=== PATIENT | female | born 1945 | race Caucasian/White ===

== ENCOUNTER 2019-03-18 14:25 | Outpatient (RCR) | payer MEDICARE, SELFPAY ==
--- NOTE | 2019-03-24 10:46 | ONC FU_ITS ---
[facility] Patient Note Patient: Yanira Sagastume Unit #: [id number]: 1945 Dictated By: Ricardo AngelDate of Visit: Mar 18, 2019 Onc MED Follow-Up/Prog Note Chief Complaint: Breast cancer. History of Present Illness: Mrs Sagastume is a 73 year-old woman with grade 3 infiltrating ductal carcinoma of the right breast, ER/WA positive and HER-2/lara negative. She had presented with a lump in her left breast. Diagnostic mammogram/ultrasound on 04/08/2018 showed a high density spiculated soft tissue mass in the posterior third central aspect of the left breast, slightly lateral to the nipple, measuring 2.3 x 3 cm. An additional nodule with indistinct margins measuring 1 cm was noted directly anterior to the mass. Additional clusters of punctate calcifications were noted in the upper outer quadrant anteriorly and posteriorly. The right breast showed numerous punctate pleomorphic calcifications with branching extensions at the 12:00 position. An additional mass measuring 8.7 mm with associated punctate pleomorphic calcifications was noted in the upper outer quadrant of the right breast. Ultrasound of the left breast showed a mass lesion with irregular margins measuring 2.5 x 3.1 x 3.1 cm in the 4:00 position. The right breast showed hypoechoic nodules at the 10-11:00 position and the 11:00 position, felt to be distinct from the architectural distortion at the 12:00 position. She underwent ultrasound directed needle biopsy on 04/17/2018. Pathology showed grade 3 infiltrating ductal carcinoma. The breast prognostic profile showed the Ki-67 unfavorable at 33%. ER was positive at 95% and WA was positive at 56%. The tumor was negative for overexpression of HER-2/lara, 0+ by IHC and amplification ratio by FISH of 1.1 with 2.9 HER-2 copies/cell. Dr Miller had seen her initially on 05/01/2018. Dr Miller reviewed treatment potential options for further treatment. At that point the decision was made to proceed with left breast lumpectomy with axillary sentinel lymph node biopsy and biopsies of the right breast lesions. That procedure was done on 05/22/2018. Pathology on the lumpectomy showed grade 2 infiltrating ductal carcinoma measuring 2.9 x 2.2 cm. The margins were free. There was no involvement in 3 axillary sentinel lymph nodes. Pathologic staging was T2, N0. Excisional biopsy of the right breast lesion at 10:00 showed grade 1 infiltrating ductal carcinoma measuring 1.1 cm. There was a component of DCIS, nuclear grade 2. There was infiltrating tumor in the margin and DCIS was identified at inked margins. Excisional biopsy of the right breast lesion at 11:00 also showed grade 1 infiltrating ductal carcinoma. It measured 0.4 cm in maximum dimension. There was focal DCIS, nuclear grade 1. The margins were free of infiltrating tumor, but DCIS was identified at inked margins. The breast prognostic profile on the right breast biopsy showed ER positive at 64% and WA positive at 96%. It was negative for overexpression of HER-2/lara, 0+ by IHC and amplification ratio by FISH of 0.7 with 1.6 HER-2 copies/cell. The Ki-67 was low at 16%. With those findings, Dr Miller had requested an Oncotype DX to be performed on the left breast tumor. It showed a recurrence score of 26 corresponding to a distant recurrence risk at 9 years of 16% with adjuvant hormonal therapy alone. It predicted an absolute chemotherapy benefit of greater than 15%. On 07/08/2018 she underwent right mastectomy with right axillary sentinel lymph node biopsy. Pathology showed residual DCIS but no residual invasive carcinoma. There was no involvement in 1 sentinel lymph node. She was then seen by Dr. Villanueva, and she underwent radiation to the left breast. She completed treatment on 10/22/2018 to a total dose of 4256 cGy. Following her visit on 10/28/2018 she began adjuvant hormonal therapy with anastrozole 1 mg daily. Her baseline DEXA scan showed normal spinal and proximal femur bone mineral densities. She was seen for a followup visit in February 2019. She had not been feeling pretty good generally. She complained that she had no energy. She also complained that she was having difficulty with memory. She had gained weight and was having hair loss. She also reported having some increase in anxiety and depression. Dr. Miller recommended that she stop the anastrozole and is here today for follow-up. But she and her family are requesting a formal evaluation for concerns of memory loss. She states overall she feels some better. Her energy is markedly improved however she states her memory troubles are not. She states her family states that her memory seems to be worse. She thinks overall it may be a little bit better but then states she is agreeable to have her memory loss evaluated further. She and her family are requesting a formal evaluation for concerns of memory loss. She states otherwise she feels pretty good. Her appetite is good/normal for her. Her activity is also normal/good for her. She denies any pain. She denies any fever or chills. She said no trouble swallowing and denies mouth sores. She has had no increase in shortness of breath orthopnea. She denies any lower extremity edema or any new pain. She denies any lower extremity edema. She has had no chest pain or palpitations. She denies any diarrhea or constipation. Her ECOG is 1. Past Medical History: Anxiety Chronic pain Depression Fibromyalgia Hyperlipidemia Hypertension Obstructive sleep apnea Type II diabetes Past Surgical History: Colposcopy Multiple dental surgeries Colonoscopy in 2009 Arthroscopic right knee surgery in 1990 Bladder surgery in 1970 Tonsillectomy in 1957 Allergies: Ibuprofen Medications: Anastrozole 1 Tablet (of 1 mg) Oral daily Aspirin 1 (81 mg) Tablet, chewable Oral daily Cholecalciferol 1 (99873 Units) Tablet Oral daily Colace 1 (100 mg) Capsule Oral b.i.d. PRN Cyanocobalamin 1 Tablet (of 100 mcg) Oral daily Lisinopril 1 Tablet (of 20 mg) Oral daily Multivitamin Adults 1 Tablet Oral daily PARoxetine HCl 1 Tablet (of 40 mg) Oral daily Family History: Ms. Sagastume's mother at age 80: type II diabetes, and Alzheimer's disease. Ms. Sagastume's father at age 56: prostate cancer. Her maternal grandfather is : colon cancer. Ms. Sagastume has 2 brothers: 2 alive. Father of prostate cancer at age 56. Her mother in her 80s with Alzheimer's dementia. She also had diabetes. Her maternal grandfather had colon cancer. Two brothers are in good health. Social History: Ms. Sagastume is and she is retired. Ms. Sagastume quit smoking 23 years ago but had smoked 1.0 pack/day for 29 years. She has no history of drinking. She has a history of smoking 1 pack of cigarettes daily for 29 years. She quit smoking in 1994. She does not drink alcohol. Review Of Symptoms: Constitutional Denies fevers, chills, night sweats, excessive fatigue or weight loss. Memory loss no better. Allergic/Immunologic No reactions. Eyes Denies significant visual changes. No diplopia. No amaurosis. ENMT Denies changes in hearing, sore throat, mouth sores, difficulty or changes in swallowing ability, and/or sinus drainage. Endocrine No diabetes, thyroid disease or hormone replacement. Denies hot flashes or night sweats. Hematologic/Lymphatic Denies easy bruising or bleeding. The patient denies any tender or palpable lymph nodes. Respiratory Denies dyspnea on exertion, chest pain, cough or hemoptysis. Denies orthopnea. Cardiovascular Denies anginal chest pain, palpitations or orthopnea. Gastrointestinal Denies nausea, vomiting, diarrhea, GI bleeding, or constipation. Denies change in bowel habits and/or stool color, no heartburn or early satiety. Genitourinary (F) No hematuria, hesitancy, incontinence, vaginal bleeding, discharge or other problems with urination. Musculoskeletal Denies joint pain, swelling or redness. No decreased range of motion. Integumentary Denies chronic rashes, inflammation, ulcerations or skin changes. Neurologic Denies headache, blurred vision, and no areas of focal weakness or numbness. Normal gait. No sensory problems. Psychiatric Denies insomnia, depression, johnny or mood swings. Vital Signs: Performed on Mar 18, 2019 14:58 Height - 63.00 in Weight - 213.2 lbs (LOW) BSA - 1.99 sq.m BMI - 37.77 (HIGH) Temperature - 97.8 F (LOW) Pulse - 84 /min Respiration - 24 /min BP - 127/76 mm(hg) O2 Sat - 96 % Pain - 2,1 - No physically strenuous activity, but ambulatory and able to carry out light or sedentary work (e.g. office work, light house work). (ECOG) Physical Examination: Constitutional Alert, oriented, no acute distress. Skin pink, warm and dry. Head Normocephalic; atraumatic. Eyes Conjunctivae and sclerae are clear and without icterus. Pupils are reactive and equal. Neck Supple without masses or thyromegaly. No jugular venous distension. Hematologic/Lymphatic No petechiae or purpura. No tender or palpable lymph nodes in the cervical or supraclavicular areas. Respiratory Lungs are clear to auscultation without rhonchi or wheezing. Cardiovascular Regular rate and rhythm of heart without murmurs,clicks, gallops or rubs. Breasts Abdomen Non-tender, non-distended, no masses or ascites. Good bowel sounds noted in all quads. No guarding or rebound tenderness. No pulsatile masses. Extremities No visible deformities, no cyanosis, clubbing or edema. Musculoskeletal No tenderness or swelling, normal range of motion without obvious weakness. Integumentary No rashes or lesions. Neurologic No sensory or motor deficits, normal cerebellar function, normal gait. Psychiatric Alert and oriented times three. Coherent speech. Verbalizes understanding of our discussions today. Laboratory:Test performed on Dec 23, 2018 09:48 TSH 3.670 uU/mL Cholesterol, Total 236 mg/dL Glucose 120 mg/dL BUN 13 mg/dL HDL Cholesterol 41 mg/dL Creatinine 0.75 mg/dL LDL Cholesterol 165 mg/dL Cr Clearance (Est) 105.04 mL/min VLDL Cholesterol 30 mg/dL Triglycerides 150 mg/dL Sodium 141 mmol/L Potassium 4.1 mmol/L Chloride 101 mmol/L CO2 24 mmol/L Calcium 9.4 mg/dL Protein, Total 7.4 g/dL Albumin 4.1 g/dL Globulin 3.3 g/dL Bilirubin, Total 0.3 mg/dL Alkaline Phosphatase 70 IU/L AST (SGOT) 17 IU/L ALT (SGPT) 14 IU/L Hemoglobin A1C 5.8 % WBC 6.5 10^9/L RBC 5.06 10^12/L HGB 14.5 g/dL HCT 43.0 % MCV 85 fl MCH 28.7 pg MCHC 33.7 g/dL RDW 14.2 % Platelet Count 232 10^9/L Neutrophils (Gran) 3.5 10^9/L Lymphocytes 2.0 10^9/L Monocytes 0.9 10^9/L Eosinophils 0.1 10^9/L Basophils 0.1 10^9/L Manual Lymphocytes 30 % Manual Monocytes 13 % Manual Eosinophils 2 % Manual Basophils 1 % Impression: 1. Patient with grade 2 infiltrating ductal carcinoma of the left breast, stage IIA (T2, N0, M0), ER/WA positive and HER-2/lara negative. She underwent lumpectomy with axillary sentinel lymph node biopsy on 05/22/2018. 2. There were additional areas of punctate calcifications in right breast. Excisional biopsies of right breast lesions at 10:00 and 11:00 on 05/22/2018 both showed grade 1 infiltrating ductal carcinoma, ER/WA positive and HER-2/lara negative, and both with involved margins. 3. There was suspected right axillary adenopathy by ultrasound. 4. She underwent right mastectomy with axillary sentinel lymph node biopsy on 07/08/2018. Pathology showed residual DCIS but no residual invasive carcinoma. There was no involvement in 1 sentinel lymph node. Final staging on the right breast was stage IA (T1c, N0, M0). It was multifocal, ER/WA positive and HER-2/lara negative. 5. She then underwent radiation to the left breast, completed on 10/22/2018 to a total dose of 4256 cGy. Her other medical illnesses include: 6. Hypertension. 7. Hyperlipidemia. 8. Type II diabetes. 9. Obstructive sleep apnea. 10. Fibromyalgia/chronic pain. 11. Anxiety/depression. Following her visit on 10/28/2018 she began adjuvant hormonal therapy with anastrozole 1 mg daily. She came in for her followup in February 2019 with multiple complaints, at least some of which are very likely to be treatment related including hot flashes, fatigue, cognitive dysfunction, and hair loss. Dr Miller recommended she old the anastrozole for 1 month and return for further followup. Plan: 1. Continue to hold anastrozole for 1 more month. I think she is slowly improving and may be able to resume it after 1 month if she still having complications and may switch her over to another agent. 2. She had recent labs drawn at [facility] per Dr. Herman. Her labs from December 23, 2018. Her WBCs at that point was 6.5, hemoglobin 14.5 and platelets are 232,000. Calcium was 9.4 LFTs were normal creatinine was 0.75. She had a lipid profile drawn at that time hemoglobin A1c was 5.8 but I do not see a recent thyroid profile. 3. She declines a flu shot. 4. I have asked for referral to Dr. Stanley for cognitive concerns. She is concerned that she is having increased memory loss and feels it is more advanced than what she would think for her age. 5. We will plan to see her back in 6 weeks unless otherwise needed. 6. Ms. Sagastume has been instructed to contact us in the interim should questions or problems arise. Signed By: Ricardo Angel-, CNP Anuj Miller MD <<Signature on File>>
== END 2019-04-11 23:59 | disposition home or self-care (01) ==
LOC: ONCMED 14:25
PROVIDERS: Family Provider Internal Medicine; PCP Internal Medicine; Visit Provider Nurse Practitioner
DX: C50.512 Malignant neoplasm of lower-outer quadrant of left female breast (principal); C50.411 Malignant neoplasm of upper-outer quadrant of right female breast; G89.29 Other chronic pain; M79.7 Fibromyalgia; E78.5 Hyperlipidemia, unspecified; I10 Essential (primary) hypertension; G47.33 Obstructive sleep apnea (adult) (pediatric); E11.9 Type 2 diabetes mellitus without complications; F41.8 Other specified anxiety disorders; R41.3 Other amnesia; Z17.0 Estrogen receptor positive status [ER+]; Z79.811 Long term (current) use of aromatase inhibitors; Z79.82 Long term (current) use of aspirin; Z90.11 Acquired absence of right breast and nipple; Z92.3 Personal history of irradiation; Z87.891 Personal history of nicotine dependence
CPT/HCPCS: 99214

== ENCOUNTER 2019-05-22 15:35 | Outpatient (CLI) | payer MEDICARE, SELFPAY ==
--- NOTE | 2019-05-25 12:44 | ONC FU_ITS ---
Dr. Miller Patient Follow-Up Note Patient: Yanira Sagastume Unit #: [id number]: 1945 Dicatated By: Anuj Miller M.D.Date of Visit:May 22, 2019 Onc Med Follow-up/Prog Note Chief Complaint: Breast cancer. History of Present Illness: This is a 74 year-old woman with bilateral breast cancer, both ER/WV positive and HER-2/lara negative. She had presented with a lump in her left breast. Diagnostic mammogram/ultrasound on 04/08/2018 showed a high density spiculated soft tissue mass in the posterior third central aspect of the left breast, slightly lateral to the nipple, measuring 2.3 x 3 cm. An additional nodule with indistinct margins measuring 1 cm was noted directly anterior to the mass. Additional clusters of punctate calcifications were noted in the upper outer quadrant anteriorly and posteriorly. The right breast showed numerous punctate pleomorphic calcifications with branching extensions at the 12:00 position. An additional mass measuring 8.7 mm with associated punctate pleomorphic calcifications was noted in the upper outer quadrant of the right breast. Ultrasound of the left breast showed a mass lesion with irregular margins measuring 2.5 x 3.1 x 3.1 cm in the 4:00 position. The right breast showed hypoechoic nodules at the 10-11:00 position and the 11:00 position, felt to be distinct from the architectural distortion at the 12:00 position. She underwent ultrasound directed needle biopsy of the left breast lesion on 04/17/2018. Pathology showed grade 3 infiltrating ductal carcinoma. The breast prognostic profile showed the Ki-67 unfavorable at 33%. ER was positive at 95% and WV was positive at 56%. The tumor was negative for overexpression of HER-2/lara, 0+ by IHC and amplification ratio by FISH of 1.1 with 2.9 HER-2 copies/cell. I had seen her initially on 05/01/2018. I reviewed treatment potential options for further treatment. At that point the decision was made to proceed with left breast lumpectomy with axillary sentinel lymph node biopsy and biopsies of the right breast lesions. That procedure was done on 05/22/2018. Pathology on the left breast lumpectomy showed grade 2 infiltrating ductal carcinoma measuring 2.9 x 2.2 cm. The margins were free. There was no involvement in 3 axillary sentinel lymph nodes. Pathologic staging was T2, N0. Excisional biopsy of the right breast lesion at 10:00 showed grade 1 infiltrating ductal carcinoma measuring 1.1 cm. There was a component of DCIS, nuclear grade 2. There was infiltrating tumor in the margin and DCIS was identified at inked margins. Excisional biopsy of the right breast lesion at 11:00 also showed grade 1 infiltrating ductal carcinoma. It measured 0.4 cm in maximum dimension. There was focal DCIS, nuclear grade 1. The margins were free of infiltrating tumor, but DCIS was identified at inked margins. The breast prognostic profile on the right breast biopsy showed ER positive at 64% and WV positive at 96%. It was negative for overexpression of HER-2/lara, 0+ by IHC and amplification ratio by FISH of 0.7 with 1.6 HER-2 copies/cell. The Ki-67 was low at 16%. With those findings, I had requested an Oncotype DX to be performed on the left breast tumor. It showed a recurrence score of 26 corresponding to a distant recurrence risk at 9 years of 16% with adjuvant hormonal therapy alone. It predicted an absolute chemotherapy benefit of greater than 15%. However, she declined adjuvant chemotherapy. On 07/08/2018 she underwent right mastectomy with right axillary sentinel lymph node biopsy. Pathology showed residual DCIS but no residual invasive carcinoma. There was no invovlement in 1 axilalry sentinel lymph node. She was then seen by Dr. Villanueva, and she underwent radiation to the left breast. She completed treatment on 10/22/2018 to a total dose of 4256 cGy. Following her visit on 10/28/2018 she began adjuvant hormonal therapy with anastrozole 1 mg daily. Her baseline DEXA scan showed normal spinal and proximal femur bone mineral densities. As of her follow-up visit on 02/04/2019 she was reporting significant side effects with anastrozole including hot flashes, alopecia, fatigue, and cognitive dysfunction. I did have her stop treatment. She is seen for a followup visit. She has been feeling a little better generally. She says her energy is starting to get better. Her ECOG score is 1. She has good appetite. She has not had fever. She still has some hot flashes, but those also are getting better. Her main complaint lately has had a right hand is still hurting, and it limits her activity. She had previously been diagnosed with severe carpal tunnel, and the hand also is numb and tingly. She has a slight cough. She does not complain of shortness of breath or chest pain. She has no GI complaints. She has seen Dr. Willingham for recurrent urinary tract infection, and her bladder function lately has been better. She also has pain in her left leg, from her thigh to her ankle, and she has pain in her right knee. She does not complain of headache or dizziness. She has some carpal tunnel symptoms in her left hand as well, but not as severe. She has some anxiety and depression. She opted to stop taking paroxetine. She is still having some issues with her memory. Medications: Aspirin 1 (81 mg) Tablet, chewable Oral daily, Cholecalciferol 1 (49944 Units) Tablet Oral daily, Colace 1 (100 mg) Capsule Oral b.i.d. PRN, Cyanocobalamin 1 Tablet (of 100 mcg) Oral daily, Lisinopril 1 Tablet (of 20 mg) Oral daily, Multivitamin Adults 1 Tablet Oral daily Allergies: Ibuprofen Review of Systems: Constitutional - Her energy level has started to improve, but she is still not at her normal activity. She is able to do light housework. Her appetite is good and weight is stable. No fever or night sweats. She is having some hot flashes. ECOG score is 1, ENMT - She has some sinus congestion/drainage. No mouth sores. No sore throat or difficulty swallowing, Hematologic/Lymphatic - No abnormal bruising or bleeding, Respiratory - No shortness of breath. She has a slight cough, mainly in the mornings. No pleuritic pain or hemoptysis, Cardiovascular - No angina pain. No palpitations, Gastrointestinal - No nausea or vomiting. No heartburn or acid reflux. No diarrhea or constipation. No blood in the stool or black stools, Genitourinary (F) - She is continuing to see Dr. Willingham for bladder issues which are overall improved, Musculoskeletal - She has severe carpal tunnel in her right wrist. She wears a brace which helps with pain. She also has pain in her right leg, Integumentary - No skin complications, Neurologic - No headache or dizziness. She has constant numbness and tingling in her right wrist and hand and some occasionally in her left hand. She is continuing to have some difficulty with her memory, Psychiatric - She has some anxiety and depression. She quit taking her paroxetine because she did not feel it was helping. No insomnia. Vital Signs: Performed on May 22, 2019 16:01 Height - 63.00 in Weight - 213.8 lbs (HIGH) BSA - 1.99 sq.m BMI - 37.87 (HIGH) Temperature - 98.4 F Pulse - 73 /min Respiration - 24 /min BP - 142/86 mm(hg) (HIGH) O2 Sat - 94 % (LOW) Pain - 10 Physical Examination: Constitutional - She looks pretty good generally, Eyes - Sclerae nonicteric. Conjunctivae clear, ENMT - No lesions noted in the oral cavity, Hematologic/Lymphatic - No cervical, clavicular, or axillary adenopathy, Respiratory - Lungs are clear with good air movement bilaterally, Cardiovascular - Heart rhythm is regular. There is no murmur, gallop, or rub noted, Abdomen - Soft. Liver and spleen are not enlarged. There is no abdominal mass or ascites noted and there is no inguinal adenopathy, Extremities - No edema, Neurologic - No focal neurologic deficits noted. Impression: 1. Patient with grade 2 infiltrating ductal carcinoma of the left breast, stage IB (T2, N0, M0), ER/WV positive and HER-2/lara negative, and with multifocal grade 1 infiltrating ductal carcinoma of the right breast, stage IA (T1c, N0, M0), ER/WV positive and HER-2/lara negative. 2. Oncotype Dx on the left breast biopsy showed a recurrence score of 26 corresponding to a distant recurrence risk at 9 years of 16% with adjuvant hormonal therapy alone. It predicted an absolute chemotherapy benefit of greater than 15%. However, she declined adjuvant chemotherapy. 3. Treatment of the left breast cancer included ultrasound-directed needle biopsy on 04/17/2018 followed by lumpectomy with axillary sentinel lymph node biopsy on 05/22/2018. She then underwent radiation to the left breast, completed on 10/22/2018 to a total dose of 4256 cGy. 4. Treatment of the right breast cancer included excisional biopsies of lesions at 10:00 and 11:00 on 05/22/2018 followed by right mastectomy with axillary sentinel lymph node biopsy on 07/08/2018. Pathology showed residual DCIS but no residual invasive carcinoma. There was no involvement in 1 axillary sentinel lymph node. Her other medical illnesses include: 6. Hypertension. 7. Hyperlipidemia. 8. Type II diabetes. 9. Obstructive sleep apnea. 10. Fibromyalgia/chronic pain. 11. Anxiety/depression. As noted above, she had declined adjuvant chemotherapy. Adjuvant hormonal therapy with anastrozole 1 mg daily began on 10/28/2018. As of her follow-up visit on 02/04/2019 the anastrozole was put on hold due to multiple side effects including hot flashes, alopecia, fatigue, and cognitive dysfunction. She has since then shown some improvement in those symptoms, though she still has somewhat limited activity tolerance and she still reports having some issues with memory. She also has carpal tunnel symptoms on the right, which are significant enough to restrict her activity. Following her visit on 10/28/2018 she began adjuvant hormonal therapy with anastrozole 1 mg daily. She came in for her followup in February 2019 with multiple complaints, at least some of which are very likely to be treatment related including hot flashes, fatigue, cognitive dysfunction, and hair loss. Dr Miller recommended she old the anastrozole for 1 month and return for further followup. Plan: She is agreeable now to continuing further adjuvant hormonal therapy with a trial of exemestane 25 mg daily. This will be subject to verification of insurance coverage. She will be scheduled for a follow-up visit in 1 month. Signed By: Anuj Miller M.D. <<Signature on File>>
== END 2019-05-22 15:36 | disposition home or self-care (01) ==
LOC: ONCMED 15:35
PROVIDERS: Family Provider Internal Medicine; PCP Internal Medicine; Visit Provider Internal Medicine Medical Oncology
DX: C50.512 Malignant neoplasm of lower-outer quadrant of left female breast (principal); C50.411 Malignant neoplasm of upper-outer quadrant of right female breast; Z17.0 Estrogen receptor positive status [ER+]; F41.8 Other specified anxiety disorders; I10 Essential (primary) hypertension; E78.5 Hyperlipidemia, unspecified; E11.9 Type 2 diabetes mellitus without complications; G47.33 Obstructive sleep apnea (adult) (pediatric); M79.7 Fibromyalgia; G89.29 Other chronic pain; Z79.811 Long term (current) use of aromatase inhibitors; Z79.82 Long term (current) use of aspirin; Z90.11 Acquired absence of right breast and nipple; Z92.3 Personal history of irradiation
CPT/HCPCS: 99214

== ENCOUNTER → 2019-07-09 12:03 | Outpatient (BNVA) | payer MEDICARE, SELFPAY | PROVIDERS: Family Provider Internal Medicine; PCP Internal Medicine; Visit Provider Nurse Practitioner Family | DX: N39.0 Urinary tract infection, site not specified (principal) | CPT/HCPCS: 80053; 81001 ==

== ENCOUNTER 2019-09-23 15:55 | Outpatient (CLI) | payer MEDICARE, SELFPAY ==
--- NOTE | 2019-09-23 18:39 | ONC FU_ITS ---
Dr. Miller Patient Follow-Up Note Patient: Yanira Sagastume Unit #: [id number]: 1945 Dicatated By: Anuj Miller M.D.Date of Visit:Sep 23, 2019 Onc Med Follow-up/Prog Note Chief Complaint: Breast cancer. History of Present Illness: This is a 74 year-old woman with bilateral breast cancer, both ER/TN positive and HER-2/lara negative. She had presented with a lump in her left breast. Diagnostic mammogram/ultrasound on 04/08/2018 showed a high density spiculated soft tissue mass in the posterior third central aspect of the left breast, slightly lateral to the nipple, measuring 2.3 x 3 cm. An additional nodule with indistinct margins measuring 1 cm was noted directly anterior to the mass. Additional clusters of punctate calcifications were noted in the upper outer quadrant anteriorly and posteriorly. The right breast showed numerous punctate pleomorphic calcifications with branching extensions at the 12:00 position. An additional mass measuring 8.7 mm with associated punctate pleomorphic calcifications was noted in the upper outer quadrant of the right breast. Ultrasound of the left breast showed a mass lesion with irregular margins measuring 2.5 x 3.1 x 3.1 cm in the 4:00 position. The right breast showed hypoechoic nodules at the 10-11:00 position and the 11:00 position, felt to be distinct from the architectural distortion at the 12:00 position. She underwent ultrasound directed needle biopsy of the left breast lesion on 04/17/2018. Pathology showed grade 3 infiltrating ductal carcinoma. The breast prognostic profile showed the Ki-67 unfavorable at 33%. ER was positive at 95% and TN was positive at 56%. The tumor was negative for overexpression of HER-2/lara, 0+ by IHC and amplification ratio by FISH of 1.1 with 2.9 HER-2 copies/cell. I had seen her initially on 05/01/2018. I reviewed treatment potential options for further treatment. At that point the decision was made to proceed with left breast lumpectomy with axillary sentinel lymph node biopsy and biopsies of the right breast lesions. That procedure was done on 05/22/2018. Pathology on the left breast lumpectomy showed grade 2 infiltrating ductal carcinoma measuring 2.9 x 2.2 cm. The margins were free. There was no involvement in 3 axillary sentinel lymph nodes. Pathologic staging was T2, N0. Excisional biopsy of the right breast lesion at 10:00 showed grade 1 infiltrating ductal carcinoma measuring 1.1 cm. There was a component of DCIS, nuclear grade 2. There was infiltrating tumor in the margin and DCIS was identified at inked margins. Excisional biopsy of the right breast lesion at 11:00 also showed grade 1 infiltrating ductal carcinoma. It measured 0.4 cm in maximum dimension. There was focal DCIS, nuclear grade 1. The margins were free of infiltrating tumor, but DCIS was identified at inked margins. The breast prognostic profile on the right breast biopsy showed ER positive at 64% and TN positive at 96%. It was negative for overexpression of HER-2/lara, 0+ by IHC and amplification ratio by FISH of 0.7 with 1.6 HER-2 copies/cell. The Ki-67 was low at 16%. With those findings, I had requested an Oncotype DX to be performed on the left breast tumor. It showed a recurrence score of 26 corresponding to a distant recurrence risk at 9 years of 16% with adjuvant hormonal therapy alone. It predicted an absolute chemotherapy benefit of greater than 15%. However, she declined adjuvant chemotherapy. On 07/08/2018 she underwent right mastectomy with right axillary sentinel lymph node biopsy. Pathology showed residual DCIS but no residual invasive carcinoma. There was no invovlement in 1 axilalry sentinel lymph node. She was then seen by Dr. Villanueva, and she underwent radiation to the left breast. She completed treatment on 10/22/2018 to a total dose of 4256 cGy. Following her visit on 10/28/2018 she began adjuvant hormonal therapy with anastrozole 1 mg daily. Her baseline DEXA scan showed normal spinal and proximal femur bone mineral densities. As of her follow-up visit on 02/04/2019 she was reporting significant side effects with anastrozole including hot flashes, alopecia, fatigue, and cognitive dysfunction. I did have her stop treatment. At her follow-up visit on 05/22/2019, she was feeling better, and at that point she agreed to a trial of further adjuvant hormonal therapy with exemestane 25 mg daily. She is seen for a followup visit. She had stopped the exemestane sometime ago because of multiple side effects. She does complain, though, that her memory is bad, and she cannot remember exactly when or why she stopped the medication. She says she has been feeling pretty good generally, though she does have issues with anxiety and depression. She indicates that she has been on several different medications for it in the past, but with no benefit. Her energy is been okay. She does have limited activity. ECOG score is 1. She has good appetite. She has not had fever. She has not been having hot flashes, but she does complain that she sweats all the time. She has no shortness of breath, cough, or chest pain. She has no GI complaints other than she sometimes has constipation. She has the start of a bladder infection, but she does have antibiotic available from Dr. Willingham. She has been having pain in her left leg, and she also has pain in her right knee and foot. She has numbness/tingling in her hands all the time. Medications: Aspirin 1 (81 mg) Tablet, chewable Oral daily, Cholecalciferol 1 (53316 Units) Tablet Oral daily, Colace 1 (100 mg) Capsule Oral b.i.d. PRN, Lisinopril 1 Tablet (of 20 mg) Oral daily, Multivitamin Adults 1 Tablet Oral daily, Vitamin B12 1 Tablet Oral daily Allergies: Ibuprofen Review of Systems: Constitutional - Her energy is okay, but she does have limited activity. Her appetite is good. Her weight is stable. She has not had fever or hot flashes, but she does complain that she sweats all the time. ECOG score is 1, ENMT - She has allergy related symptoms. No mouth sores. No sore throat or difficulty swallowing, Hematologic/Lymphatic - No abnormal bruising or bleeding, Respiratory - No shortness of breath. No cough. No pleuritic pain or hemoptysis, Cardiovascular - No angina pain. No palpitations, Gastrointestinal - No nausea or vomiting. No heartburn or acid reflux. She sometimes has constipation. No blood in the stool or black stools, Genitourinary (F) - She has a start of a bladder infection. She has antibiotic available from Dr. Willingham, Musculoskeletal - She has pain in her right knee and foot, and she also has pain in her left leg, Integumentary - No skin rash, Neurologic - No headache or dizziness. She has numbness/tingling in her hands all the time. No other focal neurologic symptoms, Psychiatric - She ivy anxiety and depression. No insomnia. Vital Signs: Performed on Sep 23, 2019 16:01 Height - 63.00 in Weight - 213.6 lbs (LOW) BSA - 1.99 sq.m BMI - 37.84 (HIGH) Temperature - 97.2 F (LOW) Pulse - 100 /min Respiration - 18 /min BP - 146/85 mm(hg) (HIGH) O2 Sat - 100 % Pain - 1 Physical Examination: Constitutional - She looks pretty good generally, Eyes - Sclerae nonicteric. Conjunctivae clear, ENMT - No lesions noted in the oral cavity, Hematologic/Lymphatic - No cervical, clavicular, or axillary adenopathy, Respiratory - Lungs are clear with good air movement bilaterally, Cardiovascular - Heart rhythm is regular. There is no murmur, gallop, or rub noted, Abdomen - Soft. Liver and spleen are not enlarged. There is no abdominal mass or ascites noted and there is no inguinal adenopathy, Extremities - There is mild lymphedema of the right arm. There is no lower extremity edema. Dorsalis pedis pulses are palpable bilaterally, Neurologic - No focal neurologic deficits noted. Impression: 1. Patient with grade 2 infiltrating ductal carcinoma of the left breast, stage IB (T2, N0, M0), ER/TN positive and HER-2/lara negative, and with multifocal grade 1 infiltrating ductal carcinoma of the right breast, stage IA (T1c, N0, M0), ER/TN positive and HER-2/lara negative. 2. Oncotype Dx on the left breast biopsy showed a recurrence score of 26 corresponding to a distant recurrence risk at 9 years of 16% with adjuvant hormonal therapy alone. It predicted an absolute chemotherapy benefit of greater than 15%. However, she declined adjuvant chemotherapy. 3. Treatment of the left breast cancer included ultrasound-directed needle biopsy on 04/17/2018 followed by lumpectomy with axillary sentinel lymph node biopsy on 05/22/2018. She then underwent radiation to the left breast, completed on 10/22/2018 to a total dose of 4256 cGy. 4. Treatment of the right breast cancer included excisional biopsies of lesions at 10:00 and 11:00 on 05/22/2018 followed by right mastectomy with axillary sentinel lymph node biopsy on 07/08/2018. Pathology showed residual DCIS but no residual invasive carcinoma. There was no involvement in 1 axillary sentinel lymph node. Her other medical illnesses include: 6. Hypertension. 7. Hyperlipidemia. 8. Type II diabetes. 9. Obstructive sleep apnea. 10. Fibromyalgia/chronic pain. 11. Anxiety/depression. As noted above, she had declined adjuvant chemotherapy. Adjuvant hormonal therapy with anastrozole 1 mg daily began on 10/28/2018. As of her follow-up visit on 02/04/2019 the anastrozole was put on hold due to multiple side effects including hot flashes, alopecia, fatigue, and cognitive dysfunction. She has since then shown some improvement in those symptoms, though she still has somewhat limited activity tolerance and she still reports having some issues with memory. She also has carpal tunnel symptoms on the right, which are significant enough to restrict her activity. Following her visit on 10/28/2018 she began adjuvant hormonal therapy with anastrozole 1 mg daily. She came in for her followup in February 2019 with multiple complaints, at least some of which were presumed to be treatment related including hot flashes, fatigue, cognitive dysfunction, and hair loss. In May 2019 she began further adjuvant hormonal therapy with exemestane 25 mg daily. It caused multiple side effects, and she also stopped taking it. The duration of therapy is unknown. At this point she continues to have some fatigue and she complains of having poor memory. She also has issues with anxiety and depression. However, there has been no evidence clinically of recurrence of the breast cancer. Plan: We discussed the fact that she is at risk of recurrence of her breast cancer based on the results of the Oncotype DX, that risk appears to be higher than average. I discussed the possibility of continuing adjuvant hormonal therapy with tamoxifen, which she does have an increased risk of thromboembolism and a very small risk of endometrial cancer, but with low risk of musculoskeletal side effects. She indicates that she prefers not to try any other treatment and that she would rather take her chances with the cancer. As such, she will be followed on observation/expectant management. I will see her again in 3 months. Signed By: Anuj Miller M.D. <<Signature on File>>
== END 2019-09-23 15:56 | disposition home or self-care (01) ==
LOC: ONCMED 15:58
PROVIDERS: PCP Internal Medicine; Visit Provider Internal Medicine Medical Oncology
DX: Z08 Encounter for follow-up examination after completed treatment for malignant neoplasm (principal); Z85.3 Personal history of malignant neoplasm of breast; I10 Essential (primary) hypertension; E78.5 Hyperlipidemia, unspecified; E11.9 Type 2 diabetes mellitus without complications; G47.33 Obstructive sleep apnea (adult) (pediatric); M79.7 Fibromyalgia; G89.29 Other chronic pain; F41.8 Other specified anxiety disorders; Z79.811 Long term (current) use of aromatase inhibitors; Z79.82 Long term (current) use of aspirin; Z92.3 Personal history of irradiation; Z90.11 Acquired absence of right breast and nipple; Z92.23 Personal history of estrogen therapy
CPT/HCPCS: 99214

== ENCOUNTER 2019-12-18 15:03 | Outpatient (CLI) | payer MEDICARE, SELFPAY ==
--- NOTE | 2019-12-18 15:04 | MR_ITS ---
WS: [id number] MRI HEAD WITHOUT CONTRAST TECHNIQUE: Sagittal T1, T2 axial, T2 axial FLAIR, axial and coronal T1 images, axial susceptibility w eighted imaging, axial diffusion weighted images, and coronal T2 images were obtained. CLINICAL INFORMATION: DEMENTIA COMPARISON: None. FINDINGS: No evidence of restricted diffusion to suggest acute ischemia. Ventricular system and basal cisterns are patent. Moderate to advanced small vessel changes with moderate parenchymal volume loss. Small ve ssel changes in the tiffany. Normal vascular flow voids at the skull base. No extra-axial fluid collecti ons. No evidence of mass or mass effect. Paranasal sinuses and mastoid air cells are well aerated. No hemosiderin on susceptibly weighted images. Normal optic chiasm and pituitary infundibulum. Normal cavernous sinuses and Meckel's cave. Mild symmetric atrophy involving the temporal lobes and hippoca mpal formations. No signal abnormalities in the mesial temporal lobes. Visualized upper cervical spin e is patent. Incidental slightly low-lying cerebellar tonsils. MR/MR head wo con* [id number] IMPRESSION: 1. No evidence of restricted diffusion to suggest acute ischemia. 2. Moderate to advanced small vessel changes with moderate parenchymal volume loss. 3. Mild symmetric atrophy involving the temporal lobes and hippocampal formati ons. No asymmetric hippocampal atrophy. 4. Normal optic chiasm and pituitary infundibulum. 5. No hemosiderin on susceptibly weighted images. 6. No other significant findings.
== END 2019-12-18 15:04 | disposition home or self-care (01) ==
LOC: RADSHAW 15:03
PROVIDERS: PCP Internal Medicine; Visit Provider Internal Medicine
DX: F03.90 Unspecified dementia, unspecified severity, without behavioral disturbance, psychotic disturbance, mood disturbance, and anxiety (principal); G31.9 Degenerative disease of nervous system, unspecified
CPT/HCPCS: 70551

== ENCOUNTER → 2020-01-04 13:32 | Outpatient (BNVA) | payer MEDICARE, SELFPAY | PROVIDERS: PCP Internal Medicine; Visit Provider Emergency Medicine | DX: Z11.59 Encounter for screening for other viral diseases (principal) | CPT/HCPCS: 87635 ==

== ENCOUNTER 2020-01-07 21:48 | Emergency (ER) | payer MEDICARE, SELFPAY ==
[2020-01-07 21:54] VITALS: BP 104/74; PULSE 90; RESP 18; TEMP 37.1; O2SAT 92; BMI 37.5
--- NOTE | 2020-01-07 22:15 | XR_ITS ---
WS: [id number] Exam: XR chest 1V portable [id number] Date/Time of Exam: 01/07/2020 10:15 PM Reason For Exam: COVID+ Comparison 03/17/2009. The lungs are fully expanded. There are chronic interstitial changes in the lower lung zones. No cons olidating infiltrate seen. No pleural effusion. Cardiomediastinal structures are unremarkable. Bony e lements are intact. XR/XR chest 1V portable [id number] IMPRESSION: 1. No acute cardiopulmonary finding. 2. Chronic interstitial changes
--- NOTE | 2020-01-07 22:15 | ECG_ITS ---
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
--- NOTE | 2020-01-07 22:18 | ED_ITS ---
HPI - SOB/Dyspnea General: Chief Complaint: COVID symptoms Stated Complaint: diff breathing covid + Time Seen by Provider: 01/07/20 21:56 Source: patient and EMS Mode of arrival: EMS Limitations: no limitations History of Present Illness: HPI Narrative: 74-year-old female patient with a history of hypertension, diabetes mellitus, obstructive sleep apnea, history of breast cancer status post chemotherapy has been feeling unwell for several days and got tested 3 days ago for COVID-19. Her test came back positive. The patient was sent in here by her family and her primary care provider with concerns for worsening illness. The patient has no complaints other than nausea and cough. She denies shortness of breath, she denies chest pain, she states she has been having occasional fever. No vomiting. No diarrhea. No headache or dizziness. MD elicited complaint: cough Onset (ago): day(s) (5) Severity: mild Associated symptoms: Reports nausea; Deny abdominal pain, fever(s), palpitations, polydipsia, polyuria or vomiting Review of Systems General: Reports: 10 or more systems reviewed and unremarkable except in HPI and below Const: Denies: fever(s), chills or body aches Eyes: Denies: change in vision or blurry vision ENMT: Denies: throat pain, enlarged tonsils, odynophagia, hoarseness, mouth pain or swelling of lips/tongue Card: Denies: palpitations, irregular heart rhythm, edema or swelling of feet/ankles Resp: Reports: non-productive cough; Denies: dyspnea or productive cough GI: Reports: nausea; Denies: abdominal pain or vomiting : Denies: flank pain, difficulty voiding, dysuria, urinary frequency, urinary urgency or urinary hesitancy Musc: Denies: neck pain, back pain or extremity swelling Skin/Breast: Denies: rash, pruritus or erythema Neuro: Denies: headache(s), numbness in extremities or weakness in extremities Endo: Denies: polyuria, polydipsia or tired all the time PFS ED PFSH: Medical History Hypertension Recurrent UTI Surgical History H/O right knee surgery arthroscopy also had lump excised from knee History of mastectomy right S/P lumpectomy, left breast Family History Mother , in her 80's Diabetes Stroke Dementia Father , at age 56 Cancer prostate Social History Smoking and tobacco status: former smoker Alcohol intake: never Marital status: / Current occupational status: retired History of recent travel: No Physical Exam Const: COMMON NORMALS: no acute distress, average body habitus, patient oriented x3, no limitations, healthy appearing, alert and well nourished HENMT: COMMON NORMALS: normocephalic, atraumatic and moist oral mucous membranes HEAD & SCALP: normocephalic and atraumatic Neck/C-Spine: COMMON NORMALS: no meningeal signs and no JVD Chest: COMMONS NORMALS: normal inspection of the chest and normal palpation of entire chest wall Resp: COMMON NORMALS: normal respiratory effort, No retractions, No use of accessory muscles, clear to auscultation bilaterally and percussion normal AUSCULTATION: clear to auscultation bilaterally PERCUSSION: percussion normal Cardio: COMMON NORMALS: no JVD, regular rate, regular rhythm, S1 normal heart sound present, S2 normal heart sound present, No gallops present (Cardio), No clicks present (Cardio), No murmurs present (Cardio), No rub (Cardio) and Periph eral pulses 2+ throughout RATE: regular rate RHYTHM: regular rhythm HEART SOUNDS: S1 normal heart sound present and S2 normal heart sound present PERIPHERAL PULSES: Peripheral pulses 2+ throughout GI: COMMON NORMALS: Normal to inspection, nondistended, normoactive bowel sounds present, Soft to palpation, non-tender, No hepatosplenomegaly present, no masses and no bruits PALPATION: Yes Soft to palpation and Yes No hepatosplenomegaly present Extremity: COMMON NORMALS: normal to inspection, full ROM, capillary refill normal, no calf tenderness and no pedal edema Neuro: COMMON NORMALS: patient oriented x3 SENSORIUM/ORIENTATION: Yes alert MENINGEAL SIGNS: Yes no meningeal signs Skin: COMMON NORMALS: no rashes or lesions noted, no wounds, turgor normal, no jaundice, no petechiae and no mottling GENERAL SKIN EXAM: no rashes or lesions noted and turgor normal Course Reevaluation(s): Reevaluation #1: Discussed her lab and imaging findings with her. Labs are remarkable for severe Covid illness. Saturations have been between 95 and 96% on room air. Negative high-sensitivity troponin, D-dimer only mildly elevated. I think she is safe enough to be discharged home. She voiced understanding and is in agreement with the plan. All she wants is something for nausea and cough. Time: 23:53 Vital Signs: Vital signs: Vital Signs Temperature 98.7 F 01/07/20 21:54 Pulse Rate 90 01/07/20 21:54 Respiratory Rate 18 01/07/20 21:54 Blood Pressure 104/74 01/07/20 21:54 Pulse Oximetry 94 01/07/20 23:01 MDM - SOB/Dyspnea MDM Narrative: Medical decision making narrative: 74-year-old female patient with multiple comorbidities who was brought to the emergency department after being diagnosed with COVID-19. Patient had minimal complaints, her only complaint was nausea and cough. On evaluation in the emergency department there are no indications of severe COVID- 19 in this patient. She is oxygenating well on room air and is well enough to be discharged home. She is discharged and managed symptomatically with antiemetics and antitussives. Medical Records: Attestation: I reviewed the patient's medical records. Lab Data: Attestation: I reviewed the patient's lab results. Labs: Lab Results 01/07/20 01/07/20 01/07/20 Range/Units 22:56 22:56 22:56 WBC 3.2 L (4.0-10.0) 10^3/ uL RBC 4.79 (4.1-5.3) 10^6/u L Hgb 13.9 (11.5-15.3) g/dL Hct 42.8 (37.0-47.0) % MCV 89.4 (81-99) fL MCH 29.0 (28.0-34.0) pg MCHC 32.5 (30.0-36.0) g/dL RDW 13.4 (12.1-15.1) % Plt Count 127 L (130-400) 10^3/c mm MPV 11.1 H (7.4-10.4) fL Neut % (Auto) 51.3 % Lymph % (Auto) 35.6 % Davidson % (Auto) 11.6 % Eos % (Auto) 0.6 % Baso % (Auto) 0.3 % Neut # (Auto) 1.64 L (1.8-7.7) 10^3/u L Lymph # (Auto) 1.1 (0.8-4.8) 10^3/u L Davidson # (Auto) 0.4 (0.2-0.9) 10^3/u L Eos # (Auto) 0.0 (0.0-0.8) 10^3/u L Baso # (Auto) 0.0 (0.0-0.1) 10^3/u L Nucleated RBC % (a uto) 0 % Nucleated RBCs # 0.0 /100WBC PT 12.10 (12.1-14.9) SECO NDS INR 0.87 (0.8-1.2) Fibrinogen 473 (174-498) mg/dL D-Dimer 0.75 H (0-0.59) ug/mIFE U Sodium 137 (136-145) mmol/L Potassium 3.8 (3.5-5.1) mmol/L Chloride 99 (98-107) mmol/L Carbon Dioxide 26 (22-29) mmol/L Anion Gap 15.8 (5-19) BUN 9 (8-23) mg/dL Creatinine 0.6 (0.5-0.9) mg/dL GFR Calculation Not Reportable Glucose 124 H (65-115) mg/dL Calculated Osmolal ity 284 L (285-295) mOsm/k g Lactic Acid (0.5-2.2) mmol/L Calcium 8.8 (8.5-10.5) mg/dL Total Bilirubin 0.2 (0.15-1.2) mg/dL AST 34 H (0-32) U/L ALT 33 (0-33) U/L Alkaline Phosphata se 72 (35-105) IU/L Lactate Dehydrogen ase 260 H (135-214) U/L Troponin T Gen 5 n g/L (0-10) ng/L Total Protein 6.7 (6.6-8.7) g/dL Albumin 4.0 (3.5-5.2) g/dL Globulin 2.7 (1.3-4.6) g/dL Procalcitonin 0.06 (0-0.5) ng/mL Influenza Type A A g (Negative) Influenza Type B A g (Negative) 01/07/20 01/07/20 01/07/20 Range/Units 22:56 22:56 22:56 WBC (4.0-10.0) 10^3/ uL RBC (4.1-5.3) 10^6/u L Hgb (11.5-15.3) g/dL Hct (37.0-47.0) % MCV (81-99) fL MCH (28.0-34.0) pg MCHC (30.0-36.0) g/dL RDW (12.1-15.1) % Plt Count (130-400) 10^3/c mm MPV (7.4-10.4) fL Neut % (Auto) % Lymph % (Auto) % Davidson % (Auto) % Eos % (Auto) % Baso % (Auto) % Neut # (Auto) (1.8-7.7) 10^3/u L Lymph # (Auto) (0.8-4.8) 10^3/u L Davidson # (Auto) (0.2-0.9) 10^3/u L Eos # (Auto) (0.0-0.8) 10^3/u L Baso # (Auto) (0.0-0.1) 10^3/u L Nucleated RBC % (a uto) % Nucleated RBCs # /100WBC PT (12.1-14.9) SECO NDS INR (0.8-1.2) Fibrinogen (174-498) mg/dL D-Dimer (0-0.59) ug/mIFE U Sodium (136-145) mmol/L Potassium (3.5-5.1) mmol/L Chloride (98-107) mmol/L Carbon Dioxide (22-29) mmol/L Anion Gap (5-19) BUN (8-23) mg/dL Creatinine (0.5-0.9) mg/dL GFR Calculation Glucose (65-115) mg/dL Calculated Osmolal ity (285-295) mOsm/k g Lactic Acid 1.5 (0.5-2.2) mmol/L Calcium (8.5-10.5) mg/dL Total Bilirubin (0.15-1.2) mg/dL AST (0-32) U/L ALT (0-33) U/L Alkaline Phosphata se (35-105) IU/L Lactate Dehydrogen ase (135-214) U/L Troponin T Gen 5 n g/L 7 (0-10) ng/L Total Protein (6.6-8.7) g/dL Albumin (3.5-5.2) g/dL Globulin (1.3-4.6) g/dL Procalcitonin (0-0.5) ng/mL Influenza Type A A g Negative (Negative) Influenza Type B A g Negative (Negative) Imaging Data^: CXR: Attestation: I personally reviewed and interpreted this imaging study as follows: Radiologist's impression: Bilateral infiltrates. EKG Data^: EKG 1: Attestation: I personally reviewed and interpreted this EKG as follows: EKG Interpretation Date: 01/07/20 EKG interpretation time: 22:36 Prior EKG tracings: not available for review Interpretation: Sinus rhythm. Heart rate 87 bpm. Normal axis. No ST changes. Discharge Plan Discharge Patient Disposition: Home Clinical Impression: Pneumonia due to 2019 novel coronavirus Condition: Stable Prescriptions: New promethazine 25 mg tablet 25 mg PO TID PRN (Reason: nausea and vomiting) Qty: 20 RF: 0 Tessalon Perles 100 mg capsule 100 mg PO TID PRN (Reason: cough) Qty: 30 RF: 0 Continued lisinopril 20 mg tablet 20 mg PO DAILY RF: 0 cholecalciferol (vitamin D3) 1,250 mcg (50,000 unit) capsule PO DAILY RF: 0 Discharge Orders: Discharge Order (Routine); Ordered 01/07/20 Ordered By: Brock Foley Referrals: Zahra Mead MD [Primary Care Provider] - 1-3 days Discharge Diet: Usual diet Discharge Activity: Increase activity as tolerated Patient Instructions: Viral Pneumonia (ED) Activity Restrictions/Additional Instructions: Return for any new or worsening symptoms, especially if your oxygen levels drop below 92%. Follow-up with your primary care provider within 3 days. Take the nausea medicine as required for nausea and the cough medicine as required for cough. Coding Level of Care Code ED Water Main Installer Helper for Chg Fwd Exam Comprehensive
[2020-01-07 23:01] VITALS: O2SAT 94
[2020-01-07 23:05] LABS: Basophils % 0.3 %; Eosinophils % 0.6 %; Hematocrit 42.8 % (37.0-47.0); Hemoglobin 13.9 g/dL (11.5-15.3); Lymphocytes # 1.1 10^3/uL (0.8-4.8); Lymphocytes % 35.6 %; Mean Corpuscular HGB Conc 32.5 g/dL (30.0-36.0); Mean Corpuscular Volume 89.4 fL (81-99); Mean Platelet Volume 11.1 fL (7.4-10.4); Monocytes # 0.4 10^3/uL (0.2-0.9); Monocytes % 11.6 %; Neutrophils # 1.64 10^3/uL (1.8-7.7); Neutrophils % 51.3 %; Nucleated Red Blood Cells % 0 %; Platelet Count 127 10^3/cmm (130-400); Red Blood Count 4.79 10^6/uL (4.1-5.3); Red Cell Distribution Width 13.4 % (12.1-15.1); White Blood Count 3.2 10^3/uL (4.0-10.0)
[2020-01-07 23:28] LABS: INR 0.87 (0.8-1.2)
[2020-01-07 23:29] LABS: Fibrinogen 473 mg/dL (174-498)
[2020-01-07 23:31] LABS: D Dimer 0.75 ug/mIFEU (0-0.59)
[2020-01-07 23:33] LABS: Alanine Aminotransferase 33 U/L (0-33); Alkaline Phosphatase 72 IU/L (35-105); Anion Gap 15.8 (5-19); Aspartate Amino Transferase 34 U/L (0-32); Blood Urea Nitrogen 9 mg/dL (8-23); Calcium 8.8 mg/dL (8.5-10.5); Carbon Dioxide 26 mmol/L (22-29); Chloride 99 mmol/L (98-107); Globulin 2.7 g/dL (1.3-4.6); Glucose 124 mg/dL (65-115); Lactate Dehydrogenase 260 U/L (135-214); Osmolality Calculated 284 mOsm/kg (285-295); Potassium 3.8 mmol/L (3.5-5.1); Sodium 137 mmol/L (136-145); Total Bilirubin 0.2 mg/dL (0.15-1.2); Total Protein 6.7 g/dL (6.6-8.7)
[2020-01-07 23:34] LABS: Lactic Sepsis W/Reflex 1.5 mmol/L (0.5-2.2)
[2020-01-07 23:35] LABS: Troponin T (5th) Once 7 ng/L (0-10)
[2020-01-07 23:38] LABS: Influenza A by IFA Negative (Negative); Influenza B by IFA Negative (Negative)
[2020-01-08] LABS: Procalcitonin 0.06 ng/mL (0-0.5)
[2020-01-08] MEDS: ondansetron 2 mg/ML SDV 2 mL 4 MG IVP (00:09)
[2020-01-08 00:10] LABS: C Reactive Protein 29.5 mg/L (0.0-4.9)
[2020-01-08] MEDS: promethazine-cod syrup 6.25-10mg/5 mL UDC PO (00:10)
[2020-01-08 00:19] VITALS: BP 150/85; PULSE 86; O2SAT 94
== END 2020-01-08 00:19 | disposition home or self-care (01) ==
PROVIDERS: Emergency Provider Family Medicine; PCP Internal Medicine
DX: U07.1 COVID-19 (principal); J12.89 Other viral pneumonia; I10 Essential (primary) hypertension; Z87.891 Personal history of nicotine dependence; E11.9 Type 2 diabetes mellitus without complications; Z85.3 Personal history of malignant neoplasm of breast; Z92.21 Personal history of antineoplastic chemotherapy; G47.33 Obstructive sleep apnea (adult) (pediatric)
CPT/HCPCS: 12345; 71045; 80053; 83605; 83615; 84145; 84484; 85025; 85378; 85384; 85610; 86140; 87040; 87804; 93005; 96374; 96375; 99283; J2405

== ENCOUNTER 2020-01-12 15:02 | Emergency (ER) | payer MEDICARE, SELFPAY ==
[2020-01-12] VITALS (7 sets, daily range): BP systolic 123–143; BP diastolic 55–75; PULSE 89–92; RESP 14–23; TEMP 37; O2SAT 90–95; BMI 35.4
--- NOTE | 2020-01-12 16:12 | XR_ITS ---
WS: [id number] Portable AP upright chest, 01/12/2020 Clinical Data: sob Comparison: Portable chest, 01/07/2020. Findings: No nodules, masses or effusions are seen. The heart is slightly enlarged. The pulmonary vas cularity is not increased. No pneumothorax is seen. The aortic arch and descending aorta are tortuou s. There is minimal patchy opacities overlying the left cardiac border and periphery of the left lowe r lobe. There is also minimal patchy opacity at the right cardiophrenic angle. The upper lobes are cl ear. XR/XR chest 1V portable [id number] Impression: 1. Patchy opacities at right cardiophrenic angle and left lower lobe which coul d represent pneumonia. 2. Cardiomegaly and atherosclerosis.
--- NOTE | 2020-01-12 16:12 | ECG_ITS ---
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
--- NOTE | 2020-01-12 18:28 | W.ED.COVID ---
HPI - COVID General: Chief Complaint: COVID symptoms Stated Complaint: low bp/ low o2/ COVID + Time Seen by Provider: 01/12/20 18:21 Source: patient Mode of arrival: ambulatory Limitations: no limitations Triage information: Has fever, cough or shortness of breath. Exposure to COVID + person last 14 days History of Present Illness: HPI Narrative: Yanira David is a 74-year-old female who comes in with nausea, decreased appetite, cough, diarrhea and other flulike symptoms for the past week. Patient states that she was tested and positive for the Covid virus on January 03. She denies any other complaints or concerns. Says she feels weak and dehydrated and just everything nauseates her she cannot keep anything down. Denies any blood in her stools or black tarry stools. She denies any other complaints or concerns. Specifically denies chest pain, shortness of breath, loss of bowel or bladder control or other complaint. COVID 19 common symptoms: positive chills, fatigue, body aches, nausea, vomiting and diarrhea; negative non-productive cough, productive cough, dyspnea, headache(s) or throat pain COVID 19 other sytmptoms: negative chest pain or confusion COVID Results: SARS-CoV-2 RNA (RT-PCR) Detected (NOT DETECTED) A 01/04/20 13:32 01/04/20 Review of Systems Const: Reports: chills, body aches, fatigue and malaise Eyes: Denies: change in vision, blurry vision, photophobia, eye discomfort, eye discharge, eye redness or yellow eyes ENMT: Denies: throat pain, odynophagia, hoarseness, swelling of lips/tongue, ear or mastoid pain, ear discharge, change in hearing or nasal discharge Card: Denies: chest pain, palpitations, irregular heart rhythm, edema, lightheadedness, syncope, pre-syncope, dyspnea on exertion or orthopnea Resp: Denies: dyspnea, productive cough, non-productive cough, wheezing, hemoptysis or chest congestion GI: Reports: nausea, vomiting and diarrhea; Denies: abdominal pain, hematemesis, coffee ground emesis, heartburn, constipation, GI cramping, hematochezia or melena : Denies: flank pain, dysuria, urinary frequency, urinary urgency or hematuria Musc: Denies: neck pain, back pain, extremity pain, extremity swelling, joint pain, joint swelling, joint redness, joint warmth or joint stiffness Skin/Breast: Denies: rash, pruritus, erythema, skin pain or skin tenderness Neuro: Denies: headache(s), numbness in extremities, weakness in extremities, sensory changes, lack of coordination, difficulty walking, dizziness, vertigo, confusion, Slurred speech present or seizure-like activity Felipe/Lymph: Denies: easy bruising, easy bleeding, petechiae, purpura or enlarged lymph nodes All/Imm: Denies: urticaria, throat swelling, tongue swelling, facial swelling or acute wheezing PFSH ED PFSH: Medical History Hypertension Recurrent UTI Surgical History H/O right knee surgery arthroscopy also had lump excised from knee History of mastectomy right S/P lumpectomy, left breast Family History Mother , in her 80's Diabetes Stroke Dementia Father , at age 56 Cancer prostate Social History Smoking and tobacco status: former smoker Alcohol intake: never Marital status: / Current occupational status: retired History of recent travel: No Physical Exam Const: COMMON NORMALS: no acute distress, patient oriented x3, no limitations and alert GENERAL APPEARANCE: cooperative HENMT: COMMON NORMALS: normocephalic, atraumatic, external ears normal, EAC's normal and Normal external nose present HEAD & SCALP: normal to inspection, normocephalic and atraumatic FACE & SINUS: normal facial exam and face symmetric NOSE: Normal external nose present and Normal nares present EXTERNAL EAR: Yes external ears normal EXTERNAL AUDITORY CANAL: EAC's normal MOUTH: Normal oral and palatal mucosa present, lip normal and tongue normal Eye: COMMON NORMALS: Equal, round and reactive pupils present and conjunctivae normal GENERAL EYE: appearance normal, both eyes and all related structures ALIGNMENT: Yes alignment normal PERIORBITAL: periorbital findings normal EYELID: eyelids normal CONJUNCTIVA: Yes conjunctivae normal SCLERA: sclerae normal PUPIL: Yes Equal, round and reactive pupils present Neck/C-Spine: COMMON NORMALS: full ROM, no lymphadenopathy, supple, no meningeal signs and no JVD GENERAL: Yes normal visual inspection and Yes trachea midline Chest: COMMONS NORMALS: normal inspection of the chest and normal palpation of entire chest wall Resp: COMMON NORMALS: normal respiratory effort, No retractions, No use of accessory muscles and clear to auscultation bilaterally EFFORT & INSPECTION: Yes able to speak in complete sentences and Yes symmetric chest movement AUSCULTATION: clear to auscultation bilaterally, no crackles, no rales, no rhonchi and no wheezes Cardio: COMMON NORMALS: no JVD, regular rate, regular rhythm, S1 normal heart sound present and S2 normal heart sound present RATE: regular rate RHYTHM: regular rhythm HEART SOUNDS: S1 normal heart sound present, S2 normal heart sound present, no click, no gallops, no murmurs and no rubs GI: COMMON NORMALS: Soft to palpation and No hepatosplenomegaly present PALPATION: Yes Soft to palpation, No Tenderness to palpation present (GI), No Guarding due to palpation present (GI), No Rigid due to palpation, Yes No hepatosplenomegaly present, No Hernia present, No Palpable mass present and No Pulsatile mass present : COMMON NORMALS: Yes no CVA tenderness BLADDER/KIDNEY EXAM: Yes no CVA tenderness EXTERNAL FEMALE EXAM: No Hernia present Back/Pelvis: COMMON NORMALS: no CVA tenderness, thoracic and lumbar spine normal to inspection, no thoracic nor lumbar tenderness and thoraco-lumbar ROM normal Extremity: COMMON NORMALS: normal to inspection, full ROM, capillary refill normal, no joint enlargement, no clubbing, cyanosis or edema and no calf tenderness Neuro: COMMON NORMALS: patient oriented x3, CN's II-XII intact bilaterally, moves all extremities, no focal motor deficits and no sensory deficits noted SENSORIUM/ORIENTATION: Yes alert MENINGEAL SIGNS: Yes no meningeal signs SPEECH: speech normal Psych: COMMON NORMALS: mental status grossly normal, Normal thought process present, cooperative, normal affect, speech normal and activity/motor behavior normal SPEECH: Yes normal speech THOUGHT PROCESS: Normal thought process present Skin: COMMON NORMALS: no rashes or lesions noted, turgor normal, no jaundice, no petechiae and no mottling GENERAL SKIN EXAM: no rashes or lesions noted and turgor normal Course Vital Signs: Vital signs: Vital Signs Temperature 98.6 F 01/12/20 15:12 Pulse Rate 93 01/13/20 00:00 Respiratory Rate 93 H 01/13/20 00:00 Blood Pressure 167/86 01/13/20 00:00 Pulse Oximetry 98 01/13/20 00:00 MDM - COVID MDM Narrative Medical decision making narrative: 2300 -at rest the patient has no hypoxia but she does have mild hypoxia with exertion. Clinically she looks stable to go home. She is feeling better. A home O2 eval does reveal the patient becomes mildly hypoxic when she exerts herself. I am going to place her on oxygen at home and start her on Decadron. I will also send her home with Blanca for nausea and vomiting. Her labs look good here and she is feeling better after the IV fluids. She understands that she should be able to keep her self better hydrated having these medications. She denies seeing any other questions or concerns. Lab Data Attestation: I reviewed the patient's lab results. Result diagrams: 01/12/20 18:59 01/12/20 18:59 Labs: Lab Results 01/12/20 01/12/20 01/12/20 Range/Units 18:45 18:59 18:59 WBC 5.6 (4.0-10.0) 10^3/uL RBC 4.61 (4.1-5.3) 10^6/uL Hgb 13.2 (11.5-15.3) g/dL Hct 40.7 (37.0-47.0) % MCV 88.3 (81-99) fL MCH 28.6 (28.0-34.0) pg MCHC 32.4 (30.0-36.0) g/dL RDW 13.6 (12.1-15.1) % Plt Count 202 (130-400) 10^3/cmm MPV 10.2 (7.4-10.4) fL Neut % (Auto) 63.5 % Lymph % (Auto) 24.4 % Hettinger % (Auto) 11.0 % Eos % (Auto) 0.5 % Baso % (Auto) 0.2 % Neut # (Auto) 3.57 (1.8-7.7) 10^3/uL Lymph # (Auto) 1.4 (0.8-4.8) 10^3/uL Hettinger # (Auto) 0.6 (0.2-0.9) 10^3/uL Eos # (Auto) 0.0 (0.0-0.8) 10^3/uL Baso # (Auto) 0.0 (0.0-0.1) 10^3/uL Nucleated RBC % (auto) 0 % Nucleated RBCs # 0.0 /100WBC Fibrinogen 722 H (174-498) mg/dL D-Dimer 1.20 H (0-0.59) ug/mIFEU Specimen Type Arterial Sample Site Radial, left ABG pH 7.47 H (7.35-7.45) ABG pCO2 39.6 (35-45) mmHg ABG pO2 57.9 L (80.0-100.0) mmHg ABG HCO3 28.7 H (22-26) mmol/L ABG Base Excess 4.6 H (-2.0-2.0) mmol/L Terry Test Pos Hematocrit 41.3 (37-47) % O2 Delivery Device Room air FiO2 21.0 % Production Control Planner ID Amh Sodium (136-145) mmol/L Potassium (3.5-5.1) mmol/L Chloride (98-107) mmol/L Carbon Dioxide (22-29) mmol/L Anion Gap (5-19) BUN (8-23) mg/dL Creatinine (0.5-0.9) mg/dL GFR Calculation Glucose (65-115) mg/dL Calculated Osmolality (285-295) mOsm/kg Lactic Acid (0.5-2.2) mmol/L Calcium (8.5-10.5) mg/dL Total Bilirubin (0.15-1.2) mg/dL AST (0-32) U/L ALT (0-33) U/L Alkaline Phosphatase (35-105) IU/L C-Reactive Protein (0.0-4.9) mg/L NT-Pro-B Natriuret Pep (0-125) pg/mL Total Protein (6.6-8.7) g/dL Albumin (3.5-5.2) g/dL Globulin (1.3-4.6) g/dL 01/12/20 01/12/20 Range/Units 18:59 18:59 WBC (4.0-10.0) 10^3/uL RBC (4.1-5.3) 10^6/uL Hgb (11.5-15.3) g/dL Hct (37.0-47.0) % MCV (81-99) fL MCH (28.0-34.0) pg MCHC (30.0-36.0) g/dL RDW (12.1-15.1) % Plt Count (130-400) 10^3/cmm MPV (7.4-10.4) fL Neut % (Auto) % Lymph % (Auto) % Hettinger % (Auto) % Eos % (Auto) % Baso % (Auto) % Neut # (Auto) (1.8-7.7) 10^3/uL Lymph # (Auto) (0.8-4.8) 10^3/uL Hettinger # (Auto) (0.2-0.9) 10^3/uL Eos # (Auto) (0.0-0.8) 10^3/uL Baso # (Auto) (0.0-0.1) 10^3/uL Nucleated RBC % (auto) % Nucleated RBCs # /100WBC Fibrinogen (174-498) mg/dL D-Dimer (0-0.59) ug/mIFEU Specimen Type Sample Site ABG pH (7.35-7.45) ABG pCO2 (35-45) mmHg ABG pO2 (80.0-100.0) mmHg ABG HCO3 (22-26) mmol/L ABG Base Excess (-2.0-2.0) mmol/L Terry Test Hematocrit (37-47) % O2 Delivery Device FiO2 % Production Control Planner ID Sodium 138 (136-145) mmol/L Potassium 3.8 (3.5-5.1) mmol/L Chloride 97 L (98-107) mmol/L Carbon Dioxide 29 (22-29) mmol/L Anion Gap 15.8 (5-19) BUN 19 (8-23) mg/dL Creatinine 0.8 (0.5-0.9) mg/dL GFR Calculation Not Reportable Glucose 106 (65-115) mg/dL Calculated Osmolality 289 (285-295) mOsm/kg Lactic Acid 1.0 (0.5-2.2) mmol/L Calcium 9.1 (8.5-10.5) mg/dL Total Bilirubin 0.5 (0.15-1.2) mg/dL AST 35 H (0-32) U/L ALT 27 (0-33) U/L Alkaline Phosphatase 79 (35-105) IU/L C-Reactive Protein 151.7 H (0.0-4.9) mg/L NT-Pro-B Natriuret Pep 49 (0-125) pg/mL Total Protein 7.3 (6.6-8.7) g/dL Albumin 3.6 (3.5-5.2) g/dL Globulin 3.7 (1.3-4.6) g/dL COVID Results: SARS-CoV-2 RNA (RT-PCR) Detected (NOT DETECTED) A 01/04/20 13:32 01/04/20 Imaging Data CXR: Attestation: I personally reviewed and interpreted this imaging study as follows: My impression: Mild interstitial infiltrates. CTA Chest with Abdomen Pelvis: Radiologist's impression: [place] [address] CT Scan Report Signed Patient: Yanira Sagastume Unit #: [id number] : 1945 Age/Sex: 74 / F ADM Date: 01/12/20 Loc: ER Room/Bed: Attending Dr: Ordering Provider/Ordering MD: Raeann Chapa DO Date of Service: 01/12/20 Procedure(s): CT angio chest w abd pel w con Accession Number(s): [id number] Report Number: [id number] PROCEDURE INFORMATION: Exam: CT Angiography Chest With Contrast Exam date and time: 01/12/2020 9:27 PM Age: 74 years old Clinical indication: Other: Diarrhea; Shortness of breath; Prior surgery; Surgery date: 6+ months; Surgery type: Mastectomy; Additional info: Shortness of breath, positive d-dimer TECHNIQUE: Imaging protocol: Computed tomographic angiography of the chest with intravenous contrast. 3D rendering (Not supervised by radiologist): MIP and/or 3D reconstructed images were created by the technologist. Radiation optimization: All CT scans at this facility use at least one of these dose optimization techniques: automated exposure control; mA and/or kV adjustment per patient size (includes targeted exams where dose is matched to clinical indication); or iterative reconstruction. Contrast material: OMNI 350; Contrast volume: 95 ml; Contrast route: INTRAVENOUS (IV); COMPARISON: CR XR chest 1V portable [id number] 01/12/2020 6:17 PM RADIATION DOSE METRICS: Total DLP (mGy-cm): 1893.25 FINDINGS: Pulmonary arteries: Normal. No pulmonary emboli. Aorta: Unremarkable. No aortic aneurysm. No aortic dissection. Lungs: Bilateral airspace opacities likely reflecting an infectious process. Pleural space: Unremarkable. No pneumothorax. No pleural effusion. Heart: Unremarkable. No cardiomegaly. No pericardial effusion. Lymph nodes: Unremarkable. No enlarged lymph nodes. Bones/joints: Unremarkable. No acute fracture. Soft tissues: Unremarkable. IMPRESSION: 1. Negative for pulmonary embolus 2. Bilateral airspace opacities likely reflecting an infectious process. PROCEDURE INFORMATION: Exam: CT Abdomen And Pelvis With Contrast Exam date and time: 01/12/2020 9:27 PM Age: 74 years old Clinical indication: Other: Diarrhea; Shortness of breath; Prior surgery; Surgery date: 6+ months; Surgery type: Mastectomy; Additional info: Shortness of breath, positive d-dimer TECHNIQUE: Imaging protocol: Computed tomography of the abdomen and pelvis with intravenous contrast. Radiation optimization: All CT scans at this facility use at least one of these dose optimization techniques: automated exposure control; mA and/or kV adjustment per patient size (includes targeted exams where dose is matched to clinical indication); or iterative reconstruction. Contrast material: OMNI 350; Contrast volume: 95 ml; Contrast route: INTRAVENOUS (IV); COMPARISON: CR XR chest 1V portable [id number] 01/12/2020 6:17 PM RADIATION DOSE METRICS: Total DLP (mGy-cm): 1893.25 FINDINGS: Liver: Normal. No mass. Gallbladder and bile ducts: Cholelithiasis. Pancreas: Normal. No ductal dilation. Spleen: Normal. No splenomegaly. Adrenal glands: Normal. No mass. Kidneys and ureters: Normal. No hydronephrosis. Stomach and bowel: Diverticulosis without diverticulitis. Appendix: No evidence of appendicitis. Intraperitoneal space: Unremarkable. No free air. No significant fluid collection. Vasculature: Unremarkable. No abdominal aortic aneurysm. Lymph nodes: Unremarkable. No enlarged lymph nodes. Urinary bladder: Unremarkable as visualized. Reproductive: Unremarkable as visualized. Bones/joints: Unremarkable. No acute fracture. Soft tissues: Unremarkable. CT/CT angio chest w abd pel w con IMPRESSION: 1. Negative for acute inflammatory process pelvis. 2. Cholelithiasis. 3. Diverticulosis without diverticulitis. Radiation Dose CTDIVOL = (mGy): DLP = 1893.25 1893.25 (mGy-cm) Dictated By: Rickey Austin MD Signed By: Rickey Austin MD Signed Date/Time: 01/12/202223 DD/ 12 EKG Data EKG 1: Attestation: I personally reviewed and interpreted this EKG as follows: EKG interpretation date: 01/12/20 EKG interpretation time: 19:29 Interpretation: Sinus rhythm 86 beats a minute, left axis deviation, no blocks, normal intervals, no acute ST or T wave changes. Discharge Plan Discharge Patient Disposition: Home Condition: Stable Prescriptions: New Zofran 4 mg tablet 4 mg PO Q6H PRN (Reason: nausea and vomiting) Qty: 20 RF: 0 Decadron 6 mg tablet 6 mg PO DAILY Qty: 10 RF: 0 No Action lisinopril 20 mg tablet 20 mg PO DAILY RF: 0 cholecalciferol (vitamin D3) 1,250 mcg (50,000 unit) capsule 1,250 mcg PO DAILY RF: 0 promethazine 25 mg tablet 25 mg PO TID PRN (Reason: nausea and vomiting) Qty: 20 RF: 0 azithromycin 250 mg tablet See Rx Instructions .ROUTE .COMPLEX RF: 0 benzonatate 100 mg capsule 100 mg PO TID RF: 0 nystatin 100,000 unit/gram cream See Rx Instructions .ROUTE .COMPLEX RF: 0 Vitamin C 100 mg Tablet 100 mg PO TID RF: 0 zinc 50 mg Tablet 50 mg PO DAILY RF: 0 Symbicort See Rx Instructions .ROUTE .COMPLEX RF: 0 Discharge Orders: Discharge Order (Routine); Ordered 01/12/20 Ordered By: Raeann Chapa Referrals: Zahra Mead MD [Primary Care Provider] - 4-7 days Discharge Diet: Advance as tolerated Discharge Activity: Limit activity as instructed Patient Instructions: Viral Pneumonia (ED), Gastroenteritis (ED), Acute Nausea and Vomiting (ED), Acute Diarrhea (ED) Activity Restrictions/Additional Instructions: Please return to the ER immediately for any of the signs or symptoms listed on your discharge instruction sheets, worsening/changing of your symptoms, you are not getting better as quickly as expected, or for ANY other cause or concerns. Use your home oxygen as instructed into your further evaluated and instructed by Dr. Mead. Return to the ER for worsening of your symptoms or for any other cause for concern. Discharge Date/Time: 01/13/20 00:29 Coding Level of Care Code ED [place] for Chg Fwd Exam Comprehensive
[2020-01-12 18:57] LABS: ABG PCO2 39.6 mmHg (35-45); ABG PH Result 7.47 (7.35-7.45); Arterial Blood Gas Hematocrit 41.3 % (37-47); Base Excess ABG 4.6 mmol/L (-2.0-2.0); Blood Gas Allen Test Pos; Blood Gas Operator Identificat AMH; Blood Gas Sample Site Radial, left; Blood Gas Sample Type Arterial; HCO3 ABG 28.7 mmol/L (22-26); Oxygen Device ROOM AIR; PO2 ABG 57.9 mmHg (80.0-100.0)
[2020-01-12 19:11] LABS: Basophils % 0.2 %; Eosinophils % 0.5 %; Hematocrit 40.7 % (37.0-47.0); Hemoglobin 13.2 g/dL (11.5-15.3); Lymphocytes # 1.4 10^3/uL (0.8-4.8); Lymphocytes % 24.4 %; Mean Corpuscular HGB Conc 32.4 g/dL (30.0-36.0); Mean Corpuscular Hemoglobin 28.6 pg (28.0-34.0); Mean Corpuscular Volume 88.3 fL (81-99); Mean Platelet Volume 10.2 fL (7.4-10.4); Monocytes # 0.6 10^3/uL (0.2-0.9); Neutrophils # 3.57 10^3/uL (1.8-7.7); Neutrophils % 63.5 %; Nucleated Red Blood Cells % 0 %; Platelet Count 202 10^3/cmm (130-400); Red Blood Count 4.61 10^6/uL (4.1-5.3); Red Cell Distribution Width 13.6 % (12.1-15.1); White Blood Count 5.6 10^3/uL (4.0-10.0)
[2020-01-12 19:43] LABS: Slide Review Slide Review Perform
[2020-01-12 20:16] LABS: Alanine Aminotransferase 27 U/L (0-33); Albumin Level 3.6 g/dL (3.5-5.2); Alkaline Phosphatase 79 IU/L (35-105); Aspartate Amino Transferase 35 U/L (0-32); Blood Urea Nitrogen 19 mg/dL (8-23); C Reactive Protein 151.7 mg/L (0.0-4.9); Calcium 9.1 mg/dL (8.5-10.5); Carbon Dioxide 29 mmol/L (22-29); Chloride 97 mmol/L (98-107); Globulin 3.7 g/dL (1.3-4.6); Glucose 106 mg/dL (65-115); NT Pro B Type Natriuretic Pept 49 pg/mL (0-125); Osmolality Calculated 289 mOsm/kg (285-295); Sodium 138 mmol/L (136-145); Total Bilirubin 0.5 mg/dL (0.15-1.2); Total Protein 7.3 g/dL (6.6-8.7)
[2020-01-12 20:19] LABS: Anion Gap 15.8 (5-19); Potassium 3.8 mmol/L (3.5-5.1)
[2020-01-12 20:23] LABS: Fibrinogen 722 mg/dL (174-498)
--- NOTE | 2020-01-12 20:32 | CTR_ITS ---
PROCEDURE INFORMATION: Exam: CT Angiography Chest With Contrast Exam date and time: 01/12/2020 9:27 PM Age: 74 years old Clinical indication: Other: Diarrhea; Shortness of breath; Prior surgery; Surgery date: 6+ months; Surgery type: Mastectomy; Additional info: Shortness of breath, positive d-dimer TECHNIQUE: Imaging protocol: Computed tomographic angiography of the chest with intravenous contrast. 3D rendering (Not supervised by radiologist): MIP and/or 3D reconstructed images were created by the technologist. Radiation optimization: All CT scans at this facility use at least one of these dose optimization techniques: automated exposure control; mA and/or kV adjustment per patient size (includes targeted exams where dose is matched to clinical indication); or iterative reconstruction. Contrast material: OMNI 350; Contrast volume: 95 ml; Contrast route: INTRAVENOUS (IV); COMPARISON: CR XR chest 1V portable [id number] 01/12/2020 6:17 PM RADIATION DOSE METRICS: Total DLP (mGy-cm): 1893.25 FINDINGS: Pulmonary arteries: Normal. No pulmonary emboli. Aorta: Unremarkable. No aortic aneurysm. No aortic dissection. Lungs: Bilateral airspace opacities likely reflecting an infectious process. Pleural space: Unremarkable. No pneumothorax. No pleural effusion. Heart: Unremarkable. No cardiomegaly. No pericardial effusion. Lymph nodes: Unremarkable. No enlarged lymph nodes. Bones/joints: Unremarkable. No acute fracture. Soft tissues: Unremarkable. IMPRESSION: 1. Negative for pulmonary embolus 2. Bilateral airspace opacities likely reflecting an infectious process. PROCEDURE INFORMATION: Exam: CT Abdomen And Pelvis With Contrast Exam date and time: 01/12/2020 9:27 PM Age: 74 years old Clinical indication: Other: Diarrhea; Shortness of breath; Prior surgery; Surgery date: 6+ months; Surgery type: Mastectomy; Additional info: Shortness of breath, positive d-dimer TECHNIQUE: Imaging protocol: Computed tomography of the abdomen and pelvis with intravenous contrast. Radiation optimization: All CT scans at this facility use at least one of these dose optimization techniques: automated exposure control; mA and/or kV adjustment per patient size (includes targeted exams where dose is matched to clinical indication); or iterative reconstruction. Contrast material: OMNI 350; Contrast volume: 95 ml; Contrast route: INTRAVENOUS (IV); COMPARISON: CR XR chest 1V portable [id number] 01/12/2020 6:17 PM RADIATION DOSE METRICS: Total DLP (mGy-cm): 1893.25 FINDINGS: Liver: Normal. No mass. Gallbladder and bile ducts: Cholelithiasis. Pancreas: Normal. No ductal dilation. Spleen: Normal. No splenomegaly. Adrenal glands: Normal. No mass. Kidneys and ureters: Normal. No hydronephrosis. Stomach and bowel: Diverticulosis without diverticulitis. Appendix: No evidence of appendicitis. Intraperitoneal space: Unremarkable. No free air. No significant fluid collection. Vasculature: Unremarkable. No abdominal aortic aneurysm. Lymph nodes: Unremarkable. No enlarged lymph nodes. Urinary bladder: Unremarkable as visualized. Reproductive: Unremarkable as visualized. Bones/joints: Unremarkable. No acute fracture. Soft tissues: Unremarkable. CT/CT angio chest w abd pel w con IMPRESSION: 1. Negative for acute inflammatory process pelvis. 2. Cholelithiasis. 3. Diverticulosis without diverticulitis. Radiation Dose CTDIVOL = (mGy): DLP = 1893.25~1893.25 (mGy-cm)
[2020-01-12] MEDS: sodium chloride 0.9% 1,000 ML 999 ML IV (20:37)
[2020-01-12] MEDS: iohexol 350 mg/mL 100 mL Btl IV (21:56)
[2020-01-13] VITALS: BP 167/86; PULSE 93; RESP 93; O2SAT 98
== END 2020-01-13 00:29 | disposition home or self-care (01) ==
PROVIDERS: Emergency Medicine; Emergency Provider Emergency Medicine; PCP Internal Medicine
DX: U07.1 COVID-19 (principal); I10 Essential (primary) hypertension; Z87.891 Personal history of nicotine dependence
CPT/HCPCS: 12345; 36600; 71045; 71275; 74177; 80053; 82803; 83605; 83880; 85025; 85378; 85384; 86140; 93005; 96361; 96374; 99283; 99284; J7030; Q9967

== ENCOUNTER 2020-03-26 12:59 | Outpatient (CLI) | payer MEDICARE, SELFPAY ==
--- NOTE | 2020-03-26 13:08 | MM_ITS ---
WS: [id number] LEFT DIGITAL MAMMOGRAPHY WITH CAD CLINICAL INFORMATION: HX OF BREAST CA COMPARISON: TECHNIQUE: 3 views of the left breast were obtained. FINDINGS: History of right mastectomy. Scattered fibroglandular densities of the left breast. 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 No evid ence of suspicious recurrent mass or lesion. Expected parenchymal fibrosis. A few incidental calcific ations. No suspicious focal mass, asymmetry, calcifications, or architectural distortion. No evidence of jovita gnancy. MM/[place] [id number] IMPRESSION: BI-RADS: 2-Benign FOLLOW UP: 1 Year Follow-up Recommend return to annual diagnostic mammography
== END 2020-03-26 13:00 | disposition home or self-care (01) ==
LOC: RADSHAW 13:05
PROVIDERS: PCP Internal Medicine; Visit Provider Internal Medicine
DX: Z85.3 Personal history of malignant neoplasm of breast (principal)
CPT/HCPCS: 77065

== ENCOUNTER → 2020-06-28 08:43 | Outpatient (BNVA) | payer MEDICARE, SELFPAY | PROVIDERS: PCP Internal Medicine; Referring Provider Internal Medicine; Visit Provider Specialist | DX: G56.03 Carpal tunnel syndrome, bilateral upper limbs (principal); M19.031 Primary osteoarthritis, right wrist; Z46.89 Encounter for fitting and adjustment of other specified devices; G56.01 Carpal tunnel syndrome, right upper limb; G56.02 Carpal tunnel syndrome, left upper limb | CPT/HCPCS: 73110; 87635; L3908 ==

== ENCOUNTER 2020-06-28 11:42 | Outpatient (CLI) | payer MEDICARE, SELFPAY | END 2020-06-28 11:43 | disposition home or self-care (01) | LOC: SPT 11:43 | PROVIDERS: PCP Internal Medicine; Visit Provider Specialist | DX: Z46.89 Encounter for fitting and adjustment of other specified devices (principal); G56.01 Carpal tunnel syndrome, right upper limb; G56.02 Carpal tunnel syndrome, left upper limb | CPT/HCPCS: 87635; L3908 ==

== ENCOUNTER 2020-07-02 06:11 | Day surgery (SDC) | payer MEDICARE, SELFPAY ==
[2020-07-01 14:23] VITALS: BMI 36.1
[2020-07-02 06:18] VITALS: BP 161/92; PULSE 72; RESP 18; TEMP 36.5; O2SAT 97
[2020-07-02] MEDS: CELEcoxib 200 mg Capsule 400 MG PO ×2 (06:37→06:44)
[2020-07-02] MEDS: sodium chloride 0.9% 1,000 ML 30 ML IV (06:45)
[2020-07-02] MEDS: acetaminophen 1,000 MG/100 ML PIGGYBACK 400 MG IV (06:45)
--- NOTE | 2020-07-02 06:48 | P.ANESASSM_ITS ---
Pre-Anesthetic Assessment Pre-Anesthetic Assessment: Height/Weight: Height 1.6 m Weight 92.533 kg Temp Pulse Resp BP Pulse Ox 97.7 F 72 18 161/92 97 07/02/20 06:18 07/02/20 06:18 07/02/20 06:18 07/02/20 06:18 07/02/20 06:18 Preop Diagnosis: Right carpal tunnel Syndrome Proposed Procedure: Operation Date: 07/02/20 07:00 Proposed Procedures p Carpal Tunnel Release 51462 G56.00(Right) - Radha Palacio MD Was Beta Gianna taken within 24 hours: N/A Was Clonidine taken within 24 hours: N/A Last intake: Intake Last Liquid Date 07/01/20 Last Liquid Time 23:59 Last Solid Date 07/01/20 Last Solid Time 18:00 Social: Social History: No alcohol and No tobacco Exam: Pre-Anes Outpt Exam: alert, oriented x 3, clear to auscultation bilater ally and regular rate & rhythm Airway: Submandibular: WNL Cervical ROM: WNL MP: 3 Dentition: Full CV/HEM: CV/HEM: HTN Metabolic: Metabolic: Morbid obesity Musc/skel: Musc/skel: OA/DJD Anesthetic Plan: ASA status: 3 Anesthesia: MAC and Regional (specify below) (Jignesh mendoza) Risk of > 500 ml blood loss (7ml/kg in children): No Meds/Allergies Current Medications: Current Medications Generic Name Dose Route Start Last Admin Trade Name Freq PRN Reason Stop Dose Admin Sodium Chloride 1,000 mls @ 30 ml s/hr 07/02/20 06:15 07/02/20 06:45 Sodium Chloride 0.9% IV 07/03/20 06:14 30 mls/hr .Q24H IDRIS Administration PFSH Anesthesia PFSH: Medical History Hypertension Recurrent UTI Surgical History H/O right knee surgery arthroscopy also had lump excised from knee History of mastectomy right S/P lumpectomy, left breast Family History Mother , in her 80's Diabetes Stroke Dementia Father , at age 56 Cancer prostate Social History Smoking and tobacco status: former smoker Alcohol intake: never Marital status: / Current occupational status: retired History of recent travel: No Data Anesthesia Cardiac Studies: No Data to Display
--- NOTE | 2020-07-02 06:55 | P.HPUD_ITS ---
Surgery/Procedure H&P Update DATE OF PROCEDURE: July 02, 2020 DATE H&P PERFORMED: 06/28/20 H&P UPDATE INFORMATION: I have reviewed H&P completed within last 30 days, I have examined patient prior to procedure, No changes to prior documentation and H&P is in [facility] [place] date indicated PREOP DIAGNOSIS: Right carpal tunnel Syndrome PLANNED PROCEDURE: Operation Date: 07/02/20 07:00 Proposed Procedures p Carpal Tunnel Release [id number] G56.00(Right) - Radha Palacio MD Related Problem List Diagnoses (1) Carpal tunnel syndrome of right wrist:
[2020-07-02 08:06] VITALS: BP 154/89; PULSE 87; RESP 18; TEMP 36.2; O2SAT 94
[2020-07-02 08:10] VITALS: BP 120/78; PULSE 72; RESP 18; O2SAT 96
[2020-07-02 08:15] VITALS: BP 112/68; PULSE 71; RESP 17; TEMP 36.2; O2SAT 97
[2020-07-02 08:27] VITALS: BP 132/82; PULSE 72; RESP 18; TEMP 36.2; O2SAT 98
[2020-07-02 08:50] VITALS: BP 117/73; PULSE 73; RESP 18; TEMP 36.2; O2SAT 97
--- NOTE | 2020-07-02 09:10 | PM.OP ---
Operative Report Date of procedure: July 02, 2020 Pre-op Diagnosis: Right carpal tunnel Syndrome Post-op diagnosis: same Post-op Findings: Severe compression up across the median nerve with purplish discoloration and hourglass appearance Procedure Done: Right carpal tunnel release Specimens removed/disposition: None Pathology: none sent Surgeon: Radha Palacio Chief Service Observer: None Anesthesia: MAC (With [place] block) Estimated blood loss (mL): 0 Tourniquet time (min): 34 Tourniquet time: At 250 mmHg IV fluids (mL): 600 Urine output (mL): 0 Urine output: No [place] Complications: None Findings: Severe compression across the carpal canal with hourglass appearance to the median nerve and significant purplish discoloration of the nerve Condition: stable Disposition: PACU (Then to same-day surgery for discharge) Brief History: This 75-year-old woman presented with complaints of severe carpal tunnel symptoms. She had significant limitations in her activities of daily living. After discussion, the patient wished to proceed with operative intervention. Risks and complications were discussed with her. Consents were signed preoperatively as well. Procedure: The patient was brought to the operating theater. The patient had a [place] block with MAC. The tourniquet was elevated to 250 mmHg for a total tourniquet time of 34 minutes. The patient was also given Ancef 2g and Ofrimev 1g preoperatively. The arm was then prepped and draped with DuraPrep in usual fashion with the arm draped free. A surgical pause was performed. At the time, the surgical pause, we confirmed the site and side of surgery. We also confirmed the patient's identity, appropriate and timely administration of preoperative antibiotics and preoperative surgical markings. An incision was then made along the thenar crease. The incision crossed the wrist joint in a curvilinear fashion. Dissection continued through skin and soft tissues using a scalpel. The palmaris longus was identified along with the transverse carpal ligament. Each of these was released carefully to avoid injury to the median nerve. We were able to dissect gently into the carpal canal which was noted to be quite tight with significant compression across the median nerve. The nerve was visualized and was an hourglass shape with purplish discoloration. The canal was subsequently palpated to assure there was no bony encroachment upon the canal. There was a quite thickened fibrous tissue within the canal, and this was opened longitudinally as well. The canal was then palpated distally and proximally to assure that my small finger was passed easily without impingement. Finding this to be so, attention was directed to closure. The wound was irrigated with ropivacaine plain. It was then closed with 3-0 nylon in an interrupted mattress fashion. Sterile dressing was then placed consisting of Xeroform gauze, fluffed fluffs, sterile soft roll, a volar splint, and an Natalio wrap. The tourniquet was released after 34 minutes. There were no complications. There were no specimens. The procedure was well tolerated. Plan is the patient will be discharged home. Associated Problem List Diagnoses (1) Carpal tunnel syndrome of right wrist:
--- NOTE | 2020-07-02 16:22 | ANE.PACU2 ---
Inpatient post-anesthesia follow up: Airway intact: Yes Vital signs: Temperature 97.1 F Pulse Rate 73 Respiratory Rate 18 Blood Pressure 117/73 Pulse Oximetry 97 Oxygen Delivery Me thod Room Air Oxygen Flow Rate Fraction of Inspir ed Oxygen Hydration adequate: Yes Nausea and vomiting: No Pain level: 2 Mental status: Baseline
== END 2020-07-02 09:20 | disposition home or self-care (01) ==
PROVIDERS: PCP Internal Medicine; Visit Provider Specialist
PROC: (CPT 64721; principal; 2020-07-02 07:00)
DX: G56.01 Carpal tunnel syndrome, right upper limb (principal); I10 Essential (primary) hypertension; E66.01 Morbid (severe) obesity due to excess calories; Z68.36 Body mass index [BMI] 36.0-36.9, adult; M19.90 Unspecified osteoarthritis, unspecified site; Z87.891 Personal history of nicotine dependence
CPT/HCPCS: 64721; 96365; J0690; J2250; J2704; J3010; J3490; J7030

== ENCOUNTER → 2020-07-29 15:04 | Outpatient (BNVA) | payer MEDICARE, SELFPAY | PROVIDERS: PCP Internal Medicine; Visit Provider Nurse Practitioner Family | DX: N39.0 Urinary tract infection, site not specified (principal) | CPT/HCPCS: 81003; 87086 ==

== ENCOUNTER 2020-08-04 21:17 | Emergency (ER) | payer MEDICARE, SELFPAY ==
[2020-08-04 21:25] VITALS: BP 155/89; PULSE 64; RESP 18; TEMP 36.3; O2SAT 95; BMI 35.9
--- NOTE | 2020-08-04 21:50 | CTR_ITS ---
PROCEDURE INFORMATION: Exam: CT Abdomen And Pelvis With Contrast Exam date and time: 08/04/2020 10:42 PM Age: 75 years old Clinical indication: Abdominal pain; Localized; Right lower quadrant (rlq); Prior surgery; Surgery type: Mastectomy; Patient HX: Rlq pain. History of breast cancer. TECHNIQUE: Imaging protocol: Computed tomography of the abdomen and pelvis with contrast. Radiation optimization: All CT scans at this facility use at least one of these dose optimization techniques: automated exposure control; mA and/or kV adjustment per patient size (includes targeted exams where dose is matched to clinical indication); or iterative reconstruction. Contrast material: OMNI 300; Contrast volume: 95 ml; Contrast route: INTRAVENOUS (IV); COMPARISON: No relevant prior studies available. RADIATION DOSE METRICS: Total DLP (mGy-cm): 1628.45 FINDINGS: Liver: There is a diffuse decrease in hepatic parenchymal density, consistent with mild fatty infiltration. There is a small simple cyst in the right lobe of the liver. Gallbladder and bile ducts: Multiple calcified gallstones are present. Pancreas: The pancreas is normal. Spleen: The spleen is normal. Adrenal glands: The adrenal glands are normal. Kidneys and ureters: There are small simple cysts in both kidneys. There is no evidence of hydronephrosis. There is no evidence of renal or ureteral calcifications. Stomach and bowel: There is no evidence of colitis/diverticulitis. There is no evidence of intestinal obstruction. Appendix: A normal appendix is identified. Intraperitoneal space: Unremarkable. No free air. No significant fluid collection. Vasculature: Unremarkable. No abdominal aortic aneurysm. Lymph nodes: There is no evidence of lymphadenopathy. Urinary bladder: Unremarkable as visualized. Reproductive: There is some small fibroids in the uterus. Bones/joints: Unremarkable. No acute fracture. Soft tissues: Unremarkable. CT/CT abdomen pelvis w con* [id number] IMPRESSION: 1. Fatty liver 2. Cholelithiasis 3. No acute finding. COMMENTS: Consistent with the [place]'s Incidental Findings Committee white paper (J Am Patricio Radiol 2018): Any incidental renal lesion less than 1 cm or classified as too small to characterize, or any incidental cystic renal lesion characterized as simple-appearing, is likely benign. No follow-up imaging is recommended for these lesions per consensus recommendations based on imaging criteria. Radiation Dose CTDIVOL = (mGy): DLP = 1628.45 (mGy-cm)
--- NOTE | 2020-08-04 21:51 | W.ED.ABDPA2 ---
HPI - Abdominal Pain General: Chief Complaint: Abdominal Pain Stated Complaint: R SIDE ABD PAIN, BEGAN LAST NIGHT Time Seen by Provider: 08/04/20 21:21 Source: patient Mode of arrival: ambulatory Limitations: no limitations History of Present Illness: HPI narrative: 75-year-old female states she been having right lower quadrant pain since last night. States been intermittent and comes and goes. States pain is sharp and is currently a 7 out of 10. States it seems to be worse with movement improved with rest. She denies any vomiting or diarrhea. Denies any dysuria. Denies any fevers. MD elicited complaint: abdominal pain Associated Symptoms: Denies chills, dysuria and fever(s) Review of Systems Const: Denies: fever(s), chills, body aches or change in appetite Eyes: Denies: blurry vision or eye discomfort ENMT: Denies: throat pain or dental pain Card: Denies: chest pain Resp: Denies: dyspnea GI: Reports: abdominal pain : Denies: dysuria Musc: Denies: neck pain or back pain Skin/Breast: Denies: rash Neuro: Denies: headache(s) Psych: Denies: depression Felipe/Lymph: Denies: easy bruising All/Imm: Denies: urticaria PFSH ED PFSH: Medical History Carpal tunnel syndrome, bilateral History of nonmelanoma skin cancer Hypertension Recurrent UTI Surgical History H/O right knee surgery arthroscopy also had lump excised from knee History of mastectomy right S/P lumpectomy, left breast Family History Mother , in her 80's Diabetes Stroke Dementia Father , at age 56 Cancer prostate Social History Smoking and tobacco status: former smoker Alcohol intake: never Marital status: / Current occupational status: retired History of recent travel: No Physical Exam Const: COMMON NORMALS: no acute distress, patient oriented x3 and healthy appearing HENMT: COMMON NORMALS: normocephalic and atraumatic HEAD & SCALP: normocephalic and atraumatic Eye: COMMON NORMALS: Equal, round and reactive pupils present and EOMs intact bilaterally PUPIL: Yes Equal, round and reactive pupils present Neck/C-Spine: COMMON NORMALS: full ROM and supple Chest: COMMONS NORMALS: normal inspection of the chest and normal palpation of entire chest wall Resp: COMMON NORMALS: normal respiratory effort, No retractions, No use of accessory muscles and clear to auscultation bilaterally AUSCULTATION: clear to auscultation bilaterally Cardio: COMMON NORMALS: regular rate, regular rhythm and No murmurs present (Cardio) RATE: regular rate RHYTHM: regular rhythm GI: COMMON NORMALS: Normal to inspection, nondistended, normoactive bowel sounds present, Soft to palpation and no masses PALPATION: Yes Soft to palpation and Yes Tenderness to palpation present (GI) Details: RLQ Extremity: COMMON NORMALS: normal to inspection and full ROM Neuro: COMMON NORMALS: patient oriented x3, moves all extremities and no focal motor deficits Psych: COMMON NORMALS: mental status grossly normal, Normal thought process present and cooperative THOUGHT PROCESS: Normal thought process present Skin: COMMON NORMALS: no rashes or lesions noted and no wounds GENERAL SKIN EXAM: no rashes or lesions noted Course Vital Signs: Vital signs: Vital Signs Temperature 97.3 F L 08/04/20 21:25 Pulse Rate 64 08/04/20 21:25 Respiratory Rate 18 08/04/20 21:25 Blood Pressure 155/89 08/04/20 21:25 Pulse Oximetry 95 08/04/20 21:25 MDM - Abdominal Pain MDM Narrative: Medical decision making narrative: Patient presents here with abdominal pain with blood work all been normal and her CT abdomen be normal as well. She has no signs appendicitis. Her pain is improved here and her exam at discharge is benign. She is stable for discharge and is to follow-up with PCP in 2 to 4 days return if worsening. Lab Data: Labs: Lab Results 08/04/20 08/04/20 08/04/20 Range/Units 22:06 22:06 22:54 WBC 6.2 (4.0-10.0) 10^3/ uL RBC 4.52 (4.1-5.3) 10^6/u L Hgb 12.8 (11.5-15.3) g/dL Hct 39.7 (37.0-47.0) % MCV 87.8 (81-99) fL MCH 28.3 (28.0-34.0) pg MCHC 32.2 (30.0-36.0) g/dL RDW 14.0 (12.1-15.1) % Plt Count 180 (130-400) 10^3/c mm MPV 11.1 H (7.4-10.4) fL Neut % (Auto) 46.2 % Lymph % (Auto) 38.9 % [place] % (Auto) 10.8 % Eos % (Auto) 3.1 % Baso % (Auto) 0.8 % Neut # (Auto) 2.87 (1.8-7.7) 10^3/u L Lymph # (Auto) 2.4 (0.8-4.8) 10^3/u L [place] # (Auto) 0.7 (0.2-0.9) 10^3/u L Eos # (Auto) 0.2 (0.0-0.8) 10^3/u L Baso # (Auto) 0.1 (0.0-0.1) 10^3/u L Nucleated RBC % (a uto) 0 % Nucleated RBCs # 0.0 /100WBC Sodium 140 (136-145) mmol/L Potassium 4.1 (3.5-5.1) mmol/L Chloride 105 (98-107) mmol/L Carbon Dioxide 26 (22-29) mmol/L Anion Gap 13.1 (5-19) BUN 10 (8-23) mg/dL Creatinine 0.4 L (0.5-0.9) mg/dL GFR Calculation Not Reportable Glucose 92 (65-115) mg/dL Calculated Osmolal ity 289 (285-295) mOsm/k g Calcium 8.8 (8.5-10.5) mg/dL Total Bilirubin 0.3 (0.15-1.2) mg/dL AST 13 (0-32) U/L ALT 11 (0-33) U/L Alkaline Phosphata se 60 (35-105) IU/L Total Protein 6.2 L (6.6-8.7) g/dL Albumin 4.1 (3.5-5.2) g/dL Globulin 2.1 (1.3-4.6) g/dL Lipase 62 H (13-60) U/L Urine Color Yellow (Yellow) Urine Appearance Clear (CLEAR) Urine pH 6.5 (5-7) Ur Specific Gravit y 1.010 (1.005-1.030) Urine Protein Neg (Negative) Urine Glucose (UA) Norm (Normal) Urine Ketones Negative (Negative) Urine Blood 3+ H (Negative) Urine Nitrate Negative (Negative) Urine Bilirubin Neg (Negative) Urine Urobilinogen Norm (Negative) mg/dL Ur Leukocyte Edwige ase Negative (Negative) Urine RBC 5-10 H (0-2) /hpf Urine WBC 0-4 H (0-5) /hpf Ur Squamous Epith Cells 0-4 H (0-5) /hpf Amorphous Sediment Not Reportable Urine Bacteria None (NONE) /hpf Imaging Data ^: CT Abd/Pel: Attestation: I personally reviewed and interpreted this imaging study as follows: Radiologist's impression: [place] [address] CT Scan Report Signed Patient: Yanira Sagastume Unit #: [id number] : 1945 Age/Sex: 75 / F ADM Date: 08/04/20 Loc: ER Room/Bed: Attending Dr: Ordering Provider/Ordering MD: Nelly Harding MD Date of Service: 08/04/20 Procedure(s): CT abdomen pelvis w con* [id number] Accession Number(s): [id number] Report Number: [id number] PROCEDURE INFORMATION: Exam: CT Abdomen And Pelvis With Contrast Exam date and time: 08/04/2020 10:42 PM Age: 75 years old Clinical indication: Abdominal pain; Localized; Right lower quadrant (rlq); Prior surgery; Surgery type: Mastectomy; Patient HX: Rlq pain. History of breast cancer. TECHNIQUE: Imaging protocol: Computed tomography of the abdomen and pelvis with contrast. Radiation optimization: All CT scans at this facility use at least one of these dose optimization techniques: automated exposure control; mA and/or kV adjustment per patient size (includes targeted exams where dose is matched to clinical indication); or iterative reconstruction. Contrast material: OMNI 300; Contrast volume: 95 ml; Contrast route: INTRAVENOUS (IV); COMPARISON: No relevant prior studies available. RADIATION DOSE METRICS: Total DLP (mGy-cm): 1628.45 FINDINGS: Liver: There is a diffuse decrease in hepatic parenchymal density, consistent with mild fatty infiltration. There is a small simple cyst in the right lobe of the liver. Gallbladder and bile ducts: Multiple calcified gallstones are present. Pancreas: The pancreas is normal. Spleen: The spleen is normal. Adrenal glands: The adrenal glands are normal. Kidneys and ureters: There are small simple cysts in both kidneys. There is no evidence of hydronephrosis. There is no evidence of renal or ureteral calcifications. Stomach and bowel: There is no evidence of colitis/diverticulitis. There is no evidence of intestinal obstruction. Appendix: A normal appendix is identified. Intraperitoneal space: Unremarkable. No free air. No significant fluid collection. Vasculature: Unremarkable. No abdominal aortic aneurysm. Lymph nodes: There is no evidence of lymphadenopathy. Urinary bladder: Unremarkable as visualized. Reproductive: There is some small fibroids in the uterus. Bones/joints: Unremarkable. No acute fracture. Soft tissues: Unremarkable. CT/CT abdomen pelvis w con* [id number] IMPRESSION: 1. Fatty liver 2. Cholelithiasis 3. No acute finding. Discharge Plan Discharge Patient Disposition: Home Clinical Impression: Abdominal pain Qualifiers: Abdominal location: right lower quadrant Qualified Code(s): R10.31 - Right lower quadrant pain Condition: Stable Prescriptions: No Action lisinopril 20 mg tablet 20 mg PO DAILY RF: 0 cholecalciferol (vitamin D3) 1,250 mcg (50,000 unit) capsule 1,250 mcg PO DAILY RF: 0 [id number] Tablet PO RF: 0 ciprofloxacin HCl 500 mg tablet 500 mg PO BID Qty: 20 RF: 2 (DME) COCK UP SPLINT See Rx Instructions .Route .MEDSUPPLY Qty: 2 RF: 0 mometasone 0.1 % solution 1 applic topical DAILY PRN (Reason: skin irritation) Qty: 60 RF: 3 nystatin 100,000 unit/gram cream See Rx Instructions .ROUTE .COMPLEX RF: 0 zinc 50 mg Tablet 50 mg PO DAILY RF: 0 Discharge Orders: Discharge ED (Routine); Ordered 08/05/20 Ordered By: Nelly Harding Referrals: Zahra Mead MD [Primary Care Provider] - 1-3 days Discharge Diet: Advance as tolerated Discharge Activity: Resume usual activity Patient Instructions: Abdominal Pain (ED) Coding Level of Care Code ED [employer] Protection Manager for Chg Fwd Exam Comprehensive
[2020-08-04 22:11] LABS: Basophils # 0.1 10^3/uL (0.0-0.1); Basophils % 0.8 %; Eosinophils # 0.2 10^3/uL (0.0-0.8); Eosinophils % 3.1 %; Hematocrit 39.7 % (37.0-47.0); Hemoglobin 12.8 g/dL (11.5-15.3); Lymphocytes # 2.4 10^3/uL (0.8-4.8); Lymphocytes % 38.9 %; Mean Corpuscular HGB Conc 32.2 g/dL (30.0-36.0); Mean Corpuscular Hemoglobin 28.3 pg (28.0-34.0); Mean Corpuscular Volume 87.8 fL (81-99); Mean Platelet Volume 11.1 fL (7.4-10.4); Monocytes # 0.7 10^3/uL (0.2-0.9); Monocytes % 10.8 %; Neutrophils # 2.87 10^3/uL (1.8-7.7); Neutrophils % 46.2 %; Nucleated Red Blood Cells % 0 %; Platelet Count 180 10^3/cmm (130-400); Red Blood Count 4.52 10^6/uL (4.1-5.3); White Blood Count 6.2 10^3/uL (4.0-10.0)
[2020-08-04] MEDS: ondansetron 2 mg/ML SDV 2 mL 4 MG IVP (22:24)
[2020-08-04] MEDS: morphine 4 mg/mL SDV 1 mL IVP (22:24)
[2020-08-04 22:33] LABS: Alanine Aminotransferase 11 U/L (0-33); Albumin Level 4.1 g/dL (3.5-5.2); Alkaline Phosphatase 60 IU/L (35-105); Aspartate Amino Transferase 13 U/L (0-32); Blood Urea Nitrogen 10 mg/dL (8-23); Calcium 8.8 mg/dL (8.5-10.5); Carbon Dioxide 26 mmol/L (22-29); Chloride 105 mmol/L (98-107); Globulin 2.1 g/dL (1.3-4.6); Glucose 92 mg/dL (65-115); Lipase 62 U/L (13-60); Osmolality Calculated 289 mOsm/kg (285-295); Sodium 140 mmol/L (136-145); Total Bilirubin 0.3 mg/dL (0.15-1.2); Total Protein 6.2 g/dL (6.6-8.7)
[2020-08-04 22:34] LABS: Creatinine Clr Calc Pharmacy 67.5012
[2020-08-04 22:35] LABS: Anion Gap 13.1 (5-19); Potassium 4.1 mmol/L (3.5-5.1)
[2020-08-04] MEDS: iohexol 300 mg/mL 100 mL Btl IV (22:55)
[2020-08-04 23:02] LABS: Add Urine Microscopic? YES; Bilirubin Urine Neg (Negative); Blood Urine 3+ (Negative); Glucose Urine UA Norm (Normal); Ketones Urine Negative (Negative); Leukocyte Esterase Urine Negative (Negative); Nitrate Urine Negative (Negative); Protein Urine Neg (Negative); Urine Appearance Clear (CLEAR); Urine Color Yellow (Yellow); Urobilinogen Urine Norm (Negative); pH Urine 6.5 (5-7)
[2020-08-04 23:03] LABS: Add Urine Culture? No; Squamous Epithelial Cell Urine 0-4 /hpf (0-5); WBC Urine 0-4 /hpf (0-5)
[2020-08-05 01:26] VITALS: BP 135/85; PULSE 85; RESP 18; TEMP 36.8; O2SAT 95
== END 2020-08-05 01:00 | disposition home or self-care (01) ==
PROVIDERS: Emergency Provider Emergency Medicine; PCP Internal Medicine
DX: R10.31 Right lower quadrant pain (principal); I10 Essential (primary) hypertension; Z87.891 Personal history of nicotine dependence
CPT/HCPCS: 74177; 80053; 81001; 83690; 85025; 96374; 96375; 99283; J2270; J2405; Q9967

== ENCOUNTER → 2020-10-08 12:33 | Outpatient (BNVA) | payer MEDICARE, SELFPAY | PROVIDERS: PCP Internal Medicine; Visit Provider Nurse Practitioner | DX: R41.3 Other amnesia (principal); R26.9 Unspecified abnormalities of gait and mobility; G89.29 Other chronic pain; Z87.891 Personal history of nicotine dependence | CPT/HCPCS: 96116; 99204 ==

== ENCOUNTER 2020-10-26 12:50 | Outpatient (CLI) | payer MEDICARE, SELFPAY ==
--- NOTE | 2020-10-26 13:00 | MR_ITS ---
WS: [id number] MRI BRAIN WITHOUT CONTRAST HISTORY: R41.89 - Other symptoms and signs involving cognitive function decline. COMPARISON: 12/18/2019 TECHNIQUE: Diffusion imaging, multiplanar T1, T2 and FLAIR imaging obtained. No evidence for acute infarct or hemorrhage. There is extensive patchy and confluent white matter dis ease extending from the vertex and through the centrum semiovale ovale and fernandez radiata and inferio rly along the white matter tracts. Microvascular ischemic changes also noted within the tiffany. No sign ificant progression since 12/18/2019. No remote or acute infarcts are volume loss. Ventricles and extra-axial spaces are normal. No inferior displacement of cerebellar tonsils. The sella turcica and pituitary gland are unremarkabl e. Dural venous sinuses and [place] demonstrate no abnormality on this unenhanced studies. Paranasal sinuses: Clear. Mastoid air cells: Normal. Calvarium and scalp: Intact. MR/MR head wo con* [id number] IMPRESSION: 1. No acute infarct or hemorrhage. 2. Severe chronic white matter small vessel ischemic changes. Similar to the p rior examination without progression. 3. Moderate atrophy.
== END 2020-10-26 12:51 | disposition home or self-care (01) ==
LOC: RADSHAW 12:51
PROVIDERS: PCP Internal Medicine; Visit Provider Nurse Practitioner
DX: R41.89 Other symptoms and signs involving cognitive functions and awareness (principal); G31.9 Degenerative disease of nervous system, unspecified
CPT/HCPCS: 70551

== ENCOUNTER 2020-12-31 08:16 | Outpatient (CLI) | payer MEDICARE, SELFPAY ==
--- NOTE | 2020-12-31 08:30 | CT_ITS ---
WS: [id number] CTA scan of the head and neck. Additional two-dimensional coronal and sagittal reconstruction along w ith MIP images was performed. 12/31/2020 Clinical Data: I70.90 - Unspecified atherosclerosis Comparison: None. DLP: 1939.[address] scans at [facility] use at least one of these dose optimization techniques: automated e xposure control; mA and/or kV adjustment per patient size (includes targeted exams where dose is matc hed to clinical indication); or iterative reconstruction. Findings: The carotid arteries bifurcate normally into the internal carotid arteries. The vertebral arteries ar e normal. There is no lymphadenopathy within the neck. The intracerebral circulation shows that the i nternal carotid arteries bifurcate into the anterior and middle cerebral arteries. The [place] of [place] is is intact. The basilar arterial system is normal. No aneurysms are seen. The ventricular system sh ows moderate dilatation without shift. No recent infarct or hemorrhage is seen. There is no prevertebral soft tissue swelling. The bones of the cervical spine and skull demonstrate no erosions. There is osteoarthritis of the cervical vertebral bodies C4-C7 with fusion at C6-C7. The intraorbital contents, paranasal sinuses, internal auditory canals and sella turcica are normal. The parotid glands are normal. The parapharyngeal areas are unremarkable. The larynx is symmetrical. The thyroid gland shows normal enhancement. CT/CT angio headneck* [id number] Impression: 1. Negative internal carotid or vertebral artery abnormalities with no evidence of stenosis or occlusion. 2. Normal intracerebral circulation. 3. Moderate cerebral atrophy.
[2020-12-31 09:00] LABS: Blood Urea Nitrogen 15 mg/dL (8-23)
[2020-12-31] MEDS: iohexol 350 mg/mL 100 mL Btl IV (09:20)
== END 2020-12-31 08:17 | disposition home or self-care (01) ==
PROVIDERS: PCP Internal Medicine; Visit Provider Specialist
DX: I70.90 Unspecified atherosclerosis (principal)
CPT/HCPCS: 70496; 70498; 82565; 84520; Q9967

== ENCOUNTER 2021-04-26 09:51 | Outpatient (CLI) | payer MEDICARE, SELFPAY ==
--- NOTE | 2021-04-26 10:06 | MM_ITS ---
WS: [id number] LEFT DIGITAL MAMMOGRAPHY WITH CAD CLINICAL INFORMATION: HX OF BREAST CA;RT MAST COMPARISON: March 26, 2020 TECHNIQUE: 4 views of the left breast were obtained. FINDINGS: Scattered fibroglandular densities of the left breast. Punctate and dystrophic calcification. Vascula r calcification. Stable clustered calcifications LEFT breast.Prior LEFT lumpectomy with parenchymal f ibrosis is similar in appearance. A few stable calcifications about the resection cavity similar in a ppearance. o No suspicious focal mass, asymmetry, calcifications, or architectural distortion. No evidence of jovita gnancy. MM/[place] [id number] IMPRESSION: BI-RADS: 2-Benign FOLLOW UP: 1 Year Follow-up Recommend return to annual diagnostic mammography.
== END 2021-04-26 09:52 | disposition home or self-care (01) ==
LOC: RADSHAW 10:04
PROVIDERS: PCP Internal Medicine; Visit Provider Internal Medicine
DX: Z85.3 Personal history of malignant neoplasm of breast (principal)
CPT/HCPCS: 77065

== ENCOUNTER 2021-09-02 10:44 | Outpatient (CLI) | payer MEDICARE, SELFPAY ==
--- NOTE | 2021-09-02 10:57 | CT_ITS ---
WS: [id number] CT ABDOMEN AND PELVIS WITH CONTRAST HISTORY: RUQ ABD PAIN/ABNORMAL WEIGHT LOSS/BREAST CANCER TECHNIQUE: Imaging performed of the abdomen and pelvis with IV contrast. Single phase imaging of the abdomen. Coronal and sagittal reformats are submitted. All CT scans at [facility] use at [facility] one of these dose optimization techniques: automated exposure control; mA and/or kV adjustment per patient size (includes targeted exams where dose is matched to clinical indication); or iterative re construction. IV CONTRAST: Omnipaque 300; 95 mL IV. Oral contrast: Yes. DLP: 1005.54 mGy.cm COMPARISON: 08/04/2020 Lower thorax: Lung bases are clear. Heart is normal size. No hiatal hernia. Liver/biliary system: Normal size liver. 5 mm low-attenuation nodule in the RIGHT lobe unchanged. No metastatic lesions are identified. Normal enhancement of the portal vein. Gallbladder: Normal. No gallstones or wall thickening. No pericholecystic fluid. Pancreas: Normal size pancreas and pancreatic duct. No adjacent inflammation. Spleen: Normal size spleen. No mass or infarct. Adrenal glands: Normal. Right kidney: Normal. Left kidney: Normal size kidney. There are a few cortical hypodensities which are too small to charac terize completely. Probably present on prior studies with no change. Aorta: Mild atherosclerosis with no aneurysm. Lymphadenopathy: None. Free fluid: None. GI tract: Normally distended stomach. No small bowel obstruction. Normal appearance of the colon. The appendix is normal. Abdominal wall: Fat containing umbilical hernia. Pelvis: Uterus and ovaries are both identified and normal size and position. No free fluid or adenopa thy. Bones: Bilateral mild degenerative changes involving the hips. Facet joint arthritis at L4-5 and L5-S 1. CT/CT abdomen pelvis w con* [id number] IMPRESSION: 1. No evidence for metastatic disease to the liver. Stable 5 mm low-attenuatio n lesion in the RIGHT lobe. Favor this is a hepatic cyst. 2. No renal obstruction. 3. Mild atherosclerosis aorta. 4. Normal appendix. 5. No adenopathy.
[2021-09-02] MEDS: barium sulfate 450 mL Oral Susp PO (11:17)
[2021-09-02] MEDS: iohexol 300 mg/mL 100 mL Btl IV (12:41)
== END 2021-09-02 10:45 | disposition home or self-care (01) ==
LOC: RAD 10:47
PROVIDERS: PCP Internal Medicine; Visit Provider Internal Medicine
DX: R10.11 Right upper quadrant pain (principal); R63.4 Abnormal weight loss; C50.919 Malignant neoplasm of unspecified site of unspecified female breast; I70.0 Atherosclerosis of aorta
CPT/HCPCS: 74177

== ENCOUNTER → 2021-10-04 10:32 | Outpatient (BNVA) | payer MEDICARE, SELFPAY | PROVIDERS: PCP Internal Medicine; Visit Provider Nurse Practitioner Family | DX: N39.0 Urinary tract infection, site not specified (principal) | CPT/HCPCS: 81003; 87086; 99213 ==

== ENCOUNTER 2022-01-30 07:44 | Outpatient (CLI) | payer MEDICARE, SELFPAY ==
--- NOTE | 2022-01-30 07:52 | MR_ITS ---
WS: [id number] MRI HEAD WITH CONTRAST TECHNIQUE: Sagittal T1, T2 axial, T2 axial FLAIR, axial susceptibility weighted imaging, axial diffus ion weighted images, and coronal T2 images were obtained. Pre and post-T1 axial and post T1 coronal i mages. ADC and FSPGR images. CLINICAL INFORMATION: ABNORMAL WEIGHT LOSS/BILATERAL BREAST CA COMPARISON: MRI 10/26 2020October 30, 2019 FINDINGS: No evidence of restricted diffusion to suggest acute ischemia. Ventricular system and basal cisterns are patent. Advanced small vessel changes with moderate parenchymal volume loss. This appears stable since 2020 and slightly progressed since 2019. Small vessel changes in the tiffany. Normal posterior fossa. Normal vascular flow voids at the skull base. No extra-axial fluid collection s. No evidence of mass or mass effect. Paranasal sinuses and mastoid air cells well aerated. No hemos iderin on the susceptibly weighted images. Normal optic chiasm and pituitary infundibulum. Moderate symmetric atrophy temporal lobes and hippoca mpal formations. No abnormal gadolinium enhancement. No evidence of enhancing intracranial metastatic disease. Normal visualized dural venous sinuses. MR/MR head wo/w con [id number] IMPRESSION: 1. No evidence of restricted diffusion to suggest acute ischemia. 2. Advanced small vessel changes with moderate parenchymal volume loss slightl y progressed since 2019 3. No evidence of enhancing intracranial metastatic disease. 4. Moderate symmetric atrophy temporal lobes and hippocampal formations. 5. No other suspicious findings.
[2022-01-30] MEDS: gadobenate dimeglumine 20 mL vial IV (10:47)
== END 2022-01-30 07:45 | disposition home or self-care (01) ==
LOC: RAD 07:44
PROVIDERS: PCP Internal Medicine; Visit Provider Internal Medicine
DX: R63.4 Abnormal weight loss (principal); C50.912 Malignant neoplasm of unspecified site of left female breast; C50.911 Malignant neoplasm of unspecified site of right female breast; G31.9 Degenerative disease of nervous system, unspecified
CPT/HCPCS: 70553; A9577

== ENCOUNTER 2022-06-06 17:58 | Emergency (ER) | payer MEDICARE, SELFPAY ==
--- NOTE | 2022-06-06 | CTR_ITS ---
PROCEDURE INFORMATION: Exam: CT Pelvis Without Contrast; Skeletal Exam date and time: 06/06/2022 8:12 PM Age: 77 years old Clinical indication: Injury or trauma; Fall; Blunt trauma (contusions or hematomas); Bilateral; Pelvic region; Patient HX: Fell from standing at home in kitchen striking occiput on floor. C/O head and back pain. Having difficulty with bearing weight. Not an anticoagulants. TECHNIQUE: Imaging protocol: Computed tomography of the pelvis without contrast. Exam focused on the skeleton. Radiation optimization: All CT scans at this facility use at least one of these dose optimization techniques: automated exposure control; mA and/or kV adjustment per patient size (includes targeted exams where dose is matched to clinical indication); or iterative reconstruction. REPORTING DATA: Count of CT and Cardiac NM exams in prior 12 months: This patient has received 4 known CTs and 0 known cardiac nuclear medicine studies in the 12 months prior to the current study. COMPARISON: CT abdomen pelvis w con* [id number] 09/02/2021 12:25 PM RADIATION DOSE METRICS: Total DLP (mGy-cm): 467.21 FINDINGS: Bones/joints: No acute fracture. No dislocation. Soft tissues: Unremarkable. CT/CT pelvis wo con [id number] IMPRESSION: No acute findings.
[2022-06-06 18:34] VITALS: BP 119/50; PULSE 75; RESP 18; TEMP 36.9; O2SAT 98; BMI 25.7
--- NOTE | 2022-06-06 18:36 | ED_ITS ---
HPI - Fall General: Chief Complaint: Fall Stated Complaint: PAIN POST FALL Time Seen by Provider: 06/06/22 18:36 History of Present Illness: 77-year-old female comes in today for complaints of fall injury. Patient reports that she tripped while walking due to some instability. Patient has a history of cognitive impairment, carpal tunnel syndrome, arthritis. Patient appears in moderate pain. Patient appears nontoxic. Patient takes lisinopril routinely for blood pressure. Associated symptoms-after fall: Denies chest pain Review of Systems General: Reports: 10 or more systems reviewed and unremarkable except in HPI and below Const: Denies: fever(s) Card: Denies: chest pain Resp: Denies: dyspnea GI: Denies: nausea or vomiting Musc: Reports: back pain PFSH ED PFSH: Medical History Carpal tunnel syndrome, bilateral Cognitive impairment History of nonmelanoma skin cancer Hypertension Recurrent UTI Surgical History H/O right knee surgery arthroscopy also had lump excised from knee History of mastectomy right S/P lumpectomy, left breast Family History Mother , in her 80's Diabetes Stroke Dementia Father , at age 56 Cancer prostate Social History Smoking and tobacco status: never smoked Alcohol intake: never Marital status: / Current occupational status: retired Physical Exam Const: COMMON NORMALS: alert HENMT: COMMON NORMALS: normocephalic HEAD & SCALP: normocephalic Neck/C-Spine: COMMON NORMALS: full ROM Resp: COMMON NORMALS: normal respiratory effort and clear to auscultation bilaterally AUSCULTATION: clear to auscultation bilaterally Cardio: COMMON NORMALS: regular rate and regular rhythm RATE: regular rate RHYTHM: regular rhythm GI: COMMON NORMALS: Soft to palpation PALPATION: Yes Soft to palpation Extremity: COMMON NORMALS: normal to inspection Neuro: SENSORIUM/ORIENTATION: Yes alert Skin: COMMON NORMALS: turgor normal GENERAL SKIN EXAM: turgor normal Course Vital Signs: Vital signs: Vital Signs Temperature 98.4 F 06/06/22 18:34 Pulse Rate 75 06/06/22 18:34 Respiratory Rate 18 06/06/22 18:34 Blood Pressure 119/50 06/06/22 18:34 Pulse Oximetry 98 06/06/22 18:34 Oxygen Delivery Me thod 06/06/22 18:34 MDM - Fall Medical Decision Making 77-year-old female comes in today for complaints of back pain after fall. Patient appears nontoxic. Patient has tenderness in the lumbar spine. Patient is guarded with movement. Differential diagnosis includes contusion, fracture, sprain. CT of the head, cervical spine, lumbar spine, and pelvis noted no fractures or acute abnormalities. Patient was given 1 hydrocodone 5?3 25 and was able to get up and ambulate then. Patient was recommended to continue with pain medication for discomfort. Encourage plenty of fluids. And follow-up with primary care. Patient reported understanding agreed to plan. Family was present and agreed with plan and instructions also. Lab Data 06/06/22 19:05 06/06/22 19:[address] 06/06/22 00:00 IMPRESSION: No acute findings. Cervical Spine CT 06/06/22 18:40 IMPRESSION: 1. No cervical spine fracture. 2. Subcentimeter left apical nodule. Follow-up according to Fleischner criteria. Head CT 06/06/22 18:40 IMPRESSION: No acute intracranial abnormality. Lumbar Spine CT 06/06/22 18:40 IMPRESSION: No acute findings. Laboratory Results WBC 6.0 10^3/uL (4.0-10.0) 06/06/22 19:05 RBC 4.51 10^6/uL (4.1-5.3) 06/06/22 19:05 Hgb 12.8 g/dL (11.5-15.3) 06/06/22 19:05 Hct 39.6 % (37.0-47.0) 06/06/22 19:05 MCV 87.8 fl (81-99) 06/06/22 19:05 MCH 28.4 pg (28.0-34.0) 06/06/22 19:05 MCHC 32.3 g/dL (30.0-36.0) 06/06/22 19:05 RDW 12.9 % (12.1-15.1) 06/06/22 19:05 Plt Count 153 10^3/cmm (130-400) 06/06/22 19:05 MPV 10.6 fL (7.4-10.4) H 06/06/22 19:05 Neut % (Auto) 62.2 % 06/06/22 19:05 Lymph % (Auto) 25.2 % 06/06/22 19:05 [place] % (Auto) 8.7 % 06/06/22 19:05 Eos % (Auto) 2.2 % 06/06/22 19:05 Baso % (Auto) 0.7 % 06/06/22 19:05 Neut # (Auto) 3.71 10^3/uL (1.8-7.7) 06/06/22 19:05 Lymph # (Auto) 1.5 10^3/uL (0.8-4.8) 06/06/22 19:05 [place] # (Auto) 0.5 10^3/uL (0.2-0.9) 06/06/22 19:05 Eos # (Auto) 0.1 10^3/uL (0.0-0.8) 06/06/22 19:05 Baso # (Auto) 0.0 10^3/uL (0.0-0.1) 06/06/22 19:05 Nucleated RBC % (auto) 0 % 06/06/22 19:05 Nucleated RBCs # 0.0 /100WBC 06/06/22 19:05 Sodium 143 mmol/L (136-145) 06/06/22 19:05 Potassium 4.2 mmol/L (3.5-5.1) 06/06/22 19:05 Chloride 106 mmol/L (98-107) 06/06/22 19:05 Carbon Dioxide 29 mmol/L (22-29) 06/06/22 19:05 Anion Gap 12.2 (5-19) 06/06/22 19:05 BUN 15 mg/dL (8-23) 06/06/22 19:05 Creatinine 0.5 mg/dL (0.5-0.9) 06/06/22 19:05 GFR Calculation Not Reportable 06/06/22 19:05 Glucose 93 mg/dL (65-115) 06/06/22 19:05 Calculated Osmolality 297 mOsm/kg (285-295) H 06/06/22 19:05 Calcium 9.1 mg/dL (8.5-10.5) 06/06/22 19:05 Total Bilirubin 0.3 mg/dL (0.15-1.2) 06/06/22 19:05 AST 22 U/L (0-32) 06/06/22 19:05 ALT 13 U/L (0-33) 06/06/22 19:05 Alkaline Phosphatase 59 U/L (35-105) 06/06/22 19:05 Total Protein 6.7 g/dL (6.6-8.7) 06/06/22 19:05 Albumin 4.1 g/dL (3.5-5.2) 06/06/22 19:05 Globulin 2.6 g/dL (1.3-4.6) 06/06/22 19:05 Urine Color Light yellow (Yellow) 06/06/22 19:57 Urine Appearance Clear (CLEAR) 06/06/22 19:57 Urine pH 8 (5-7) H 06/06/22 19:57 Ur Specific [place] 1.010 (1.005-1.030) 06/06/22 19:57 Urine Protein Neg (Negative) 06/06/22 19:57 Urine Glucose (UA) Norm (Normal) 06/06/22 19:57 Urine Ketones Negative (Negative) 06/06/22 19:57 Urine Blood 2+ (Negative) H 06/06/22 19:57 Urine Nitrate Negative (Negative) 06/06/22 19:57 Urine Bilirubin Neg (Negative) 06/06/22 19:57 Prot Sulfosalicylic Acd Negative (Negative) 06/06/22 19:57 Urine Urobilinogen Norm mg/dL (Negative) 06/06/22 19:57 Ur Leukocyte Esterase Negative (Negative) 06/06/22 19:57 Urine RBC 0-4 /hpf (0-2) H 06/06/22 19:57 Urine WBC None /hpf (0-5) 06/06/22 19:57 Ur Squamous Epith Cells None /hpf (0-5) 06/06/22 19:57 Amorphous Sediment Trace /hpf 06/06/22 19:57 Urine Bacteria Trace /hpf (NONE) 06/06/22 19:57 Discharge Plan Discharge Patient Disposition: Home Clinical Impression: Fall, Contusion of multiple sites Back pain Qualifiers: Back pain location: low back pain Chronicity: acute Back pain laterality: unspecified Sciatica presence: without sciatica Qualified Code(s): M54.50 - Low back pain, unspecified Condition: Stable Prescriptions: New hydrocodone-acetaminophen 5-325 mg tablet 1 tab PO Q8H PRN (Reason: pain (scale score 7-10)) Qty: 9 0RF No Action mupirocin 2 % ointment 1 applic topical BID Qty: 22 1RF Rx Instructions: Apply to affected area until healed lisinopril 20 mg tablet 20 mg PO DAILY cholecalciferol (vitamin D3) 1,250 mcg (50,000 unit) capsule 1,250 mcg PO DAILY [id number] Tablet PO mometasone 0.1 % solution 1 applic topical DAILY PRN (Reason: skin irritation) Qty: 60 3RF Rx Instructions: apply thin film to scalp daily prn ciprofloxacin HCl 500 mg tablet 500 mg PO BID Qty: 20 2RF zinc 50 mg Tablet 50 mg PO DAILY Discharge Orders: Discharge ED (Routine); Ordered 06/06/22 Ordered By: Mitch García Referrals: Zahra Mead MD [Primary Care Provider] - Discharge Diet: Usual diet Discharge Activity: Increase activity as tolerated Patient Instructions: Musculoskeletal Pain (ED) Activity Restrictions/Additional Instructions: Activity as tolerated. Gentle stretching range of motion exercises. Drink plenty of water. Use acetaminophen and ibuprofen to control pain. Use hydrocodone for severe pain. Return to ED for new concerns. Follow-up with primary care as needed. Coding Level of Care Code ED Service Engine Repairer for Dipak Gary
--- NOTE | 2022-06-06 18:40 | CTR_ITS ---
PROCEDURE INFORMATION: Exam: CT Lumbar Spine Without Contrast Exam date and time: 06/06/2022 8:08 PM Age: 77 years old Clinical indication: Injury or trauma; Fall; Blunt trauma (contusions or hematomas); Patient HX: Fell from standing at home in kitchen striking occiput on floor. C/O head and back pain. Having difficulty with bearing weight. Not an anticoagulants. ; Additional info: Fall, back pain TECHNIQUE: Imaging protocol: Computed tomography of the lumbar spine without contrast. Radiation optimization: All CT scans at this facility use at least one of these dose optimization techniques: automated exposure control; mA and/or kV adjustment per patient size (includes targeted exams where dose is matched to clinical indication); or iterative reconstruction. REPORTING DATA: Count of CT and Cardiac NM exams in prior 12 months: This patient has received 4 known CTs and 0 known cardiac nuclear medicine studies in the 12 months prior to the current study. COMPARISON: NM bone scan whole body* [id number] 05/17/2018 9:47 AM RADIATION DOSE METRICS: Total DLP (mGy-cm): 825.93 FINDINGS: Bones/joints: No acute fracture. Normal alignment. No significant disc bulge or herniation. No severe spinal canal stenosis. Soft tissues: Unremarkable. CT/CT lumbar spine wo con* [id number] IMPRESSION: No acute findings.
--- NOTE | 2022-06-06 18:40 | CTR_ITS ---
PROCEDURE INFORMATION: Exam: CT Cervical Spine Without Contrast Exam date and time: 06/06/2022 8:04 PM Age: 77 years old Clinical indication: Injury or trauma; Fall; Blunt trauma; Patient HX: Fell from standing at home in kitchen striking occiput on floor. C/O head and back pain. Having difficulty with bearing weight. Not an anticoagulants. TECHNIQUE: Imaging protocol: Computed tomography of the cervical spine without contrast. Radiation optimization: All CT scans at this facility use at least one of these dose optimization techniques: automated exposure control; mA and/or kV adjustment per patient size (includes targeted exams where dose is matched to clinical indication); or iterative reconstruction. REPORTING DATA: Count of CT and Cardiac NM exams in prior 12 months: This patient has received 4 known CTs and 0 known cardiac nuclear medicine studies in the 12 months prior to the current study. COMPARISON: NM bone scan whole body* [id number] 05/17/2018 9:47 AM RADIATION DOSE METRICS: Total DLP (mGy-cm): 147.57 FINDINGS: Bones/joints: Moderate to severe degenerative changes are seen in the cervical and upper thoracic spine. Bony fusion of the C6 and C7 vertebral bodies is noted. No acute fracture is visualized. Mild anterolisthesis of C5 over C6 is appreciated. Lungs: A tiny 3 mm left apical nodule is noted. Soft tissues: Unremarkable. CT/CT cervical spin wo con* [id number] IMPRESSION: 1. No cervical spine fracture. 2. Subcentimeter left apical nodule. Follow-up according to Fleischner criteria.
--- NOTE | 2022-06-06 18:40 | CTR_ITS ---
PROCEDURE INFORMATION: Exam: CT Head Without Contrast Exam date and time: 06/06/2022 8:01 PM Age: 77 years old Clinical indication: Injury or trauma; Fall; Blunt trauma (contusions or hematomas); Patient HX: Fell from standing at home in kitchen striking occiput on floor. C/O head and back pain. Having difficulty with bearing weight. Not an anticoagulants. TECHNIQUE: Imaging protocol: Computed tomography of the head without contrast. Radiation optimization: All CT scans at this facility use at least one of these dose optimization techniques: automated exposure control; mA and/or kV adjustment per patient size (includes targeted exams where dose is matched to clinical indication); or iterative reconstruction. REPORTING DATA: Count of CT and Cardiac NM exams in prior 12 months: This patient has received 4 known CTs and 0 known cardiac nuclear medicine studies in the 12 months prior to the current study. COMPARISON: MR head wo/w con [id number] 01/30/2022 8:25 AM RADIATION DOSE METRICS: Total DLP (mGy-cm): 1237.05 FINDINGS: Brain: Mild atrophy and moderate to severe white matter chronic microvascular changes are noted. No hemorrhage or evidence of acute infarction. Cerebral ventricles: No ventriculomegaly. Paranasal sinuses: Visualized sinuses are unremarkable. No fluid levels. Mastoid air cells: Visualized mastoid air cells are well aerated. Bones/joints: Unremarkable. No acute fracture. Soft tissues: Mild soft tissue swelling is present in the left occipital scalp. CT/CT head wo con* [id number] IMPRESSION: No acute intracranial abnormality.
[2022-06-06] MEDS: HYDROcodone-acetaminophen 5-325 mg Tablet 1 TAB PO (18:52)
[2022-06-06 19:25] LABS: Basophils % 0.7 %; Eosinophils # 0.1 10^3/uL (0.0-0.8); Eosinophils % 2.2 %; Hematocrit 39.6 % (37.0-47.0); Hemoglobin 12.8 g/dL (11.5-15.3); Lymphocytes # 1.5 10^3/uL (0.8-4.8); Lymphocytes % 25.2 %; Mean Corpuscular HGB Conc 32.3 g/dL (30.0-36.0); Mean Corpuscular Hemoglobin 28.4 pg (28.0-34.0); Mean Corpuscular Volume 87.8 fl (81-99); Mean Platelet Volume 10.6 fL (7.4-10.4); Monocytes # 0.5 10^3/uL (0.2-0.9); Monocytes % 8.7 %; Neutrophils # 3.71 10^3/uL (1.8-7.7); Neutrophils % 62.2 %; Nucleated Red Blood Cells % 0 %; Platelet Count 153 10^3/cmm (130-400); Red Blood Count 4.51 10^6/uL (4.1-5.3); Red Cell Distribution Width 12.9 % (12.1-15.1)
[2022-06-06 19:48] LABS: Alanine Aminotransferase 13 U/L (0-33); Albumin Level 4.1 g/dL (3.5-5.2); Alkaline Phosphatase 59 U/L (35-105); Anion Gap 12.2 (5-19); Aspartate Amino Transferase 22 U/L (0-32); Blood Urea Nitrogen 15 mg/dL (8-23); Calcium 9.1 mg/dL (8.5-10.5); Carbon Dioxide 29 mmol/L (22-29); Chloride 106 mmol/L (98-107); Globulin 2.6 g/dL (1.3-4.6); Glucose 93 mg/dL (65-115); Osmolality Calculated 297 mOsm/kg (285-295); Potassium 4.2 mmol/L (3.5-5.1); Sodium 143 mmol/L (136-145); Total Bilirubin 0.3 mg/dL (0.15-1.2); Total Protein 6.7 g/dL (6.6-8.7)
[2022-06-06 20:21] LABS: Blood Urine 2+ (Negative); Glucose Urine UA Norm (Normal); Ketones Urine Negative (Negative); Nitrate Urine Negative (Negative); Protein Urine Neg (Negative); Urine Appearance Clear (CLEAR); Urine Color Light yellow (Yellow); pH Urine 8 (5-7)
[2022-06-06 20:22] LABS: Add Urine Culture? No; Add Urine Microscopic? YES; Amorphous Sediment Urine TRACE /hpf; Bacteria Urine TRACE /hpf; Bilirubin Urine Neg (Negative); Leukocyte Esterase Urine Negative (Negative); RBC Urine 0-4 /hpf (0-2); Sulfosalicylic Acid Urine Negative (Negative); Urobilinogen Urine Norm (Negative)
== END 2022-06-06 21:16 | disposition home or self-care (01) ==
PROVIDERS: Emergency Provider Nurse Practitioner Family; PCP Internal Medicine
DX: M54.50 Low back pain, unspecified (principal); T14.8XXA Other injury of unspecified body region, initial encounter; W01.0XXA Fall on same level from slipping, tripping and stumbling without subsequent striking against object, initial encounter
CPT/HCPCS: 36415; 70450; 72125; 72131; 72192; 80053; 81001; 85025; 99285

== ENCOUNTER 2022-10-03 16:16 | Outpatient (CLI) | payer MEDICARE, SELFPAY | END 2022-10-03 16:17 | disposition home or self-care (01) | LOC: LAB 16:17 | PROVIDERS: PCP Internal Medicine; Visit Provider Nurse Practitioner Family | DX: R19.7 Diarrhea, unspecified (principal) | CPT/HCPCS: 87493; 87506 ==

== ENCOUNTER 2023-03-10 16:58 | Emergency (ER) | payer MEDICARE, SELFPAY ==
[2023-03-10 17:12] VITALS: BP 100/63; PULSE 67; RESP 16; TEMP 37; O2SAT 95
--- NOTE | 2023-03-10 17:19 | XRR_ITS ---
PROCEDURE INFORMATION: Exam: XR Lumbosacral Spine Exam date and time: 03/10/2023 6:07 PM Age: 77 years old Clinical indication: Lumbago; Patient HX: Low back pain post fall TECHNIQUE: Imaging protocol: Radiologic exam of the lumbosacral spine. Views: 2 or 3 views. COMPARISON: CT lumbar spine wo con* [id number] 06/06/2022 8:08 PM FINDINGS: Bones/joints: Diffusely demineralized bones without acute fracture. Trace anterolisthesis of L4 on L5 in the setting of bilateral facet arthrosis, stable. Mild discovertebral degenerative change throughout the lumbar spine. Multilevel facet arthrosis greatest inferiorly. Mild bilateral sacroiliac joint degenerative change. Severe left and mild right hip degenerative change. Soft tissues: Unremarkable. Vasculature: Aortoiliac atherosclerotic calcification. XR/XR lumbar spine 2-3V* [id number] IMPRESSION: 1. Osteopenia without radiographic evidence of acute fracture or traumatic listhesis. 2. Severe left hip osteoarthritis. Otherwise mild degenerative change throughout the imaged axial and proximal appendicular skeletal system.
--- NOTE | 2023-03-10 17:19 | ED_ITS ---
HPI - Fall General: Chief Complaint: Fall Stated Complaint: FALL Time Seen by Provider: 03/10/23 17:16 Limitations: altered mental status (Dementia) History of Present Illness: Patient presents to the ER from [facility] by EMS. It is thought the destini mccauley had a fall and she has low back and buttock pain. Patient does have dementia and when asked where she hurts she says nowhere but when physical exam was performed it appears she may have low back pain. Patient is unsure how she fell or why she fell or when she fell. Review of Systems General: Reports: ROS unobtainable due to mental status (Dementia) [facility] ED PFS: Medical History Cognitive impairment History of nonmelanoma skin cancer Carpal tunnel syndrome, bilateral Hypertension Recurrent UTI Surgical History S/P lumpectomy, left breast History of mastectomy right H/O right knee surgery arthroscopy also had lump excised from knee Family History Mother , in her 80's Diabetes Stroke Dementia Father , at age 56 Cancer prostate Social History Smoking and tobacco/nicotine status: never used tobacco/nicotine Alcohol intake: never Marital status: / Current occupational status: retired Physical Exam Const: COMMON NORMALS: no acute distress, average body habitus, healthy appearing, alert and well nourished HENMT: COMMON NORMALS: normocephalic, atraumatic, hearing grossly normal b ilaterally, external ears normal, Normal external nose present, moist oral mucous membranes and oropharynx normal HEAD & SCALP: normocephalic and atraumatic NOSE: Normal external nose present EXTERNAL EAR: Yes external ears normal Neck/C-Spine: COMMON NORMALS: full ROM, no lymphadenopathy, supple, no meningeal signs, no JVD and Thyroid normal THYROID: Thyroid normal Chest: COMMONS NORMALS: normal inspection of the chest and normal palpation of entire chest wall Resp: COMMON NORMALS: normal respiratory effort, No retractions, No use of accessory muscles and clear to auscultation bilaterally AUSCULTATION: clear to auscultation bilaterally Cardio: COMMON NORMALS: no JVD, regular rate, regular rhythm, S1 normal heart sound present, S2 normal heart sound present, No gallops present (Cardio), No clicks present (Cardio), No murmurs present (Cardio) and No rub (Cardio) RATE: regular rate RHYTHM: regular rhythm HEART SOUNDS: S1 normal heart sound present and S2 normal heart sound present GI: COMMON NORMALS: Normal to inspection, nondistended, normoactive bowel sounds present, Soft to palpation, non-tender, No hepatosplenomegaly present and no masses PALPATION: Yes Soft to palpation and Yes No hepatosplenomegaly present Back/Pelvis: OTHER: Possible mildly tender to palpate lumbar spine region. Extremity: NARRATIVE EXTREMITY EXAM: Tender to palpate bilateral upper and lower extremities Neuro: SENSORIUM/ORIENTATION: Yes alert MENINGEAL SIGNS: Yes no meningeal signs Course Vital Signs: Vital signs: Vital Signs Temperature 98.6 F 03/10/23 17:12 Pulse Rate 67 03/10/23 17:12 Respiratory Rate 16 03/10/23 17:12 Blood Pressure 100/63 03/10/23 17:12 Pulse Oximetry 95 03/10/23 17:12 MDM - Fall Medical Decision Making Presents to the ER status post fall with probable low back pain. X-ray was taken my preliminary reading is negative. Patient be discharged back to the custodial and if the result is other than negative for acute fracture we will call the custodial and possibly change to the plan. Otherwise patient is to follow-up with her PCP in 7 to 10 days Differential Diagnosis Unlikely syncope, dislocation of shoulder region, fracture of wrist, compression fracture, concussion with loss of consciousness or concussion without loss of consciousness Medical Records I reviewed the patient's medical records. Lab Data I reviewed the patient's lab results. XR interpretation done by ED provider, pending radiology final review Discharge Plan Discharge Patient Disposition: Home Clinical Impression: Fall, Low back pain Condition: Stable Prescriptions: No Action mupirocin 2 % ointment 1 applic topical BID Qty: 22 1RF Rx Instructions: Apply to affected area until healed lisinopril 20 mg tablet 20 mg PO DAILY cholecalciferol (vitamin D3) 1,250 mcg (50,000 unit) capsule 1,250 mcg PO DAILY [id number] Tablet PO mometasone 0.1 % solution 1 applic topical DAILY PRN (Reason: skin irritation) Qty: 60 3RF Rx Instructions: apply thin film to scalp daily prn ciprofloxacin HCl 500 mg tablet 500 mg PO BID Qty: 20 2RF zinc 50 mg Tablet 50 mg PO DAILY hydrocodone-acetaminophen 5-325 mg tablet 1 tab PO Q8H PRN (Reason: pain (scale score 7-10)) Qty: 9 0RF Discharge Orders: Discharge ED (Routine); Ordered 03/10/23 Ordered By: Ryan Sultana Referrals: Zahra Mead MD [Primary Care Provider] - 1 week Patient Instructions: Fall Prevention for Older Adults (ED), Acute Low Back Pain (ED) Activity Restrictions/Additional Instructions: Your x-ray report was preliminary read by the emergency room physician as negative for acute fracture. If the radiologist sees anything different than this that changes treatment you will be called. Otherwise follow-up with your family practice doctor within next 7 to 10 days for further evaluation and treatment. Coding Level of Care Code ED Distance Learning Program Coordinator for Dipak Gary
[2023-03-10 21:53] VITALS: BP 100/63; PULSE 67; RESP 16; TEMP 37; O2SAT 95
== END 2023-03-10 21:54 | disposition home or self-care (01) ==
PROVIDERS: Emergency Provider Emergency Medicine; PCP Internal Medicine
DX: M54.50 Low back pain, unspecified (principal); I10 Essential (primary) hypertension; Z87.440 Personal history of urinary (tract) infections; F03.90 Unspecified dementia, unspecified severity, without behavioral disturbance, psychotic disturbance, mood disturbance, and anxiety; W19.XXXA Unspecified fall, initial encounter; Y92.129 Unspecified place in nursing home as the place of occurrence of the external cause
CPT/HCPCS: 72100; 99283